=== PATIENT | female | born 1990 | race Caucasian/White ===

== ENCOUNTER 2022-06-07 10:00 | Emergency (ER) | payer OTHER, SELFPAY ==
[2022-06-07 10:24] VITALS: BP 143/92; PULSE 117; RESP 14; TEMP 36.4; O2SAT 97; BMI 29.2
[2022-06-07 10:44] LABS: MANUAL DIFF FLAG NO
[2022-06-07 10:47] LABS: Appearance Urine Clear; Color Urine Yellow; Glucose Urine UA >=1000 mg/dL (Negative); Leukocyte Esterase Urine Negative (Negative); Nitrite Urine Negative (Negative); PH 5.5 (5.0-9.0); Specific Gravity - Urine >= 1.030 (1.005-1.025); UMIC TRIGGER UACC YES; Urine Blood Negative (Negative); Urine Ketones >=160 mg/dL (Negative); Urine Protein Trace mg/dL (Neg-Trace)
[2022-06-07 10:50] LABS: Bacteria Urine Trace (None Seen); Hyaline Casts Urine 0-2 /LPF (0-2); RBC Urine 0-2 /HPF (0-2); WBC Urine 0-5 /HPF (0-5)
[2022-06-07 10:51] LABS: Basophils Percent Auto 0.3 % (0-2); Eosinophils Percent Auto 0.5 % (0-4); Hematocrit 44.7 % (37.0-47.0); Hemoglobin 14.9 g/dl (12.0-16.0); Imm Gran Abs Auto 0.03 X10*3/uL (0.00-0.03); Imm Gran Pct Auto 0.4 % (0.0-0.4); Lymphocytes Absolute Auto 1.3 X10*3/uL (1.2-4.9); Lymphocytes Percent Auto 17.3 % (20-40); Mean Corpuscular HGB Conc 33.3 g/dl (31.0-35.0); Mean Corpuscular Hemoglobin 27.3 pg (27.0-33.0); Mean Corpuscular Volume 81.9 fL (80.0-98.0); Mean Platelet Volume 8.8 fL (9.4-12.3); Monocytes Absolute Auto 0.5 X10*3/uL (0.1-1.2); Monocytes Percent Auto 6.1 % (2-11); Neutrophils Absolute Auto 5.8 x10*3/uL (2.0-8.3); Neutrophils Percent Auto 75.4 % (45-73); Platelet Count 429 X10*3/uL (160-400); Red Blood Count 5.46 X10*6/uL (4.20-5.50); Red Cell Distribution Width 13.7 % (11.0-16.0); UPreg QC Valid YES; Urine Pregnancy NEGATIVE (NEGATIVE); White Blood Count 7.7 X10*3/uL (4.8-10.8)
[2022-06-07 11:03] LABS: COVID-19 Test Negative (Negative); IDNOW Serial# 9DB6401D; IDNOW Serial# BCCEAD1C; Influenza A Negative (Negative); Influenza B2 Negative (Negative)
[2022-06-07 11:12] LABS: Anion Gap 19 (12-20); Blood Urea Nitrogen 12 mg/dL (9-16); Calcium 9.1 mg/dL (8.4-10.2); Carbon Dioxide 19 mmol/L (22-29); Chloride 98 mmol/L (96-108); Creatinine Clr Calc Pharmacy 102.3; Estimated Glomerular Filt Rate > 60; Glucose Random 420 mg/dL (60-115); Potassium 3.9 mmol/L (3.3-5.1); Sodium 132 mmol/L (135-145)
--- NOTE | 2022-06-07 13:47 | ED.GENADULT ---
HPI - General Adult General Chief complaint: General Medical Stated complaint: multiple complaints Time Seen by Provider: 06/07/22 13:41 Source: patient Mode of arrival: ambulatory Limitations: no limitations History of Present Illness HPI narrative: This is a 31 years old female presented to the emergency department complaining of nausea vomiting diarrhea generalized body aches ongoing for months. She has history of diabetes she is not taking any insulin at this time. Onset (ago): week(s) Radiation: non-radiation Severity: moderate Quality: burning Pain Consistency: constant Relieving factors: none Exacerbating factors: none Related Data Previous Rx's Medication Instructions Recorded metformin 500 mg tablet 500 mg PO BID #60 tabs 06/07/22 Allergies Allergy/AdvReac Type Severity Reaction Status Date / Time No Known Allergies Allergy Unverified 11/24/19 18:42 Review of Systems Constitutional: Constitutional: Reports no additional constitutional complaints Eyes: Eyes: Reports no additional eye complaints Gastrointestinal: Gastrointestinal: Reports diarrhea and Reports vomiting Neurologic: Reports system reviewed and no additional complaints, except as documented [facility] Past Medical History [facility] Narrative: History of diabetes Social History Social History Advance Directives: No Advance Directives Information Provided: No Physical Exam ED Vital Signs: Vital Signs - 24 hr 06/07/22 10:24 06/07/22 14:30 06/07/22 16:17 Temperature 97.6 F 98.7 F Pulse Rate 117 H 98 100 Respiratory Rate 14 16 16 Blood Pressure 143/92 H 138/90 H 146/93 H Pulse Oximetry 97 98 99 Oxygen Delivery Method Room Air Room Air Room Air BMI result Body Mass Index 29.2 Const General: cooperative Nutritional Appearance: average body habitus Orientation/consciousness: oriented to person and patient oriented x3 Limitations: no limitations HENMT Head: Yes normal to inspection General nose exam: Normal external nose present Face and sinus: Yes normal facial exam Neck Neck: Yes normal visual inspection and Yes full ROM Chest Chest palpation & inspection: normal inspection of the chest Resp Effort & Inspection: normal respiratory effort Auscultation: clear to auscultation bilaterally Cardio Jugular venous distension: no JVD Rate: regular rate Rhythm: regular rhythm GI Inspection: Yes normal to inspection Palpation (GI): Soft to palpation Percussion: Yes normal to percussion Auscultation: normal bowel sounds General: Yes no CVA tenderness Back/Spine/Pelvis Back: no CVA tenderness Skin General skin exam: no rashes or lesions noted, elasticity normal and turgor normal Lesions: no lesions Rashes: no rashes Neuro General: oriented to person and patient oriented x3 Cranial nerves: Yes CN's II-XII intact bilaterally Course Reevaluation(s) Reevaluation #1: feels better blood sugar down to 289 ,normal gap ok to d/c home,acetone normal Time: 16:29 Medications Administered Discontinued Medications Generic Name Dose Route Start Last Admin Trade Name Freq PRN Reason Stop Dose Admin Sodium Chloride 1,000 mls @ 999 mls/hr 06/07/22 13:45 06/07/22 14:07 Ns IVCONT 06/07/22 14:45 999 mls/hr .Q1H1M ROLO Administration Sodium Chloride 1,000 mls @ 999 mls/hr 06/07/22 13:45 06/07/22 14:08 Ns IVCONT 06/07/22 14:45 999 mls/hr .Q1H1M ROLO Administration Ondansetron HCl 4 mg 06/07/22 13:45 06/07/22 14:08 Ondansetron Hcl 4 Mg/2 Ml Vial IVPUSH 06/07/22 13:46 4 mg ONCE ONE Administration Medical Decision Making Medical Decision Making [facility] Narrative: Patient presented with nausea vomiting and diarrhea body aches history of diabetes glucose was elevated in triage with good the hydrate the patient check electrolytes/will check acetone/will check annual gap and reassessed Differential Diagnosis Differential Diagnoses: The differential diagnosis associated with the presentation includes DKA/dehydration/viral illness Admission/Observation Consideration of admission/observation: Escalation of care including admission/observation considered Lab Data [facility] Lab Attestation statement: I reviewed the patient's lab results. 06/07/22 10:38 06/07/22 10:38 Labs: Lab Results 06/07/22 06/07/22 06/07/22 Range/Units 10:38 10:38 10:38 WBC 7.7 (4.8-10.8) X10*3/uL RBC 5.46 (4.20-5.50) X10*6/uL Hgb 14.9 (12.0-16.0) g/dl Hct 44.7 (37.0-47.0) % MCV 81.9 (80.0-98.0) fL MCH 27.3 (27.0-33.0) pg MCHC 33.3 (31.0-35.0) g/dl RDW 13.7 (11.0-16.0) % Plt Count 429 H (160-400) X10*3/uL MPV 8.8 L (9.4-12.3) fL Immature Gran % (Auto) 0.4 (0.0-0.4) % Neut % (Auto) 75.4 H (45-73) % Lymph % (Auto) 17.3 L (20-40) % [place] % (Auto) 6.1 (2-11) % Eos % (Auto) 0.5 (0-4) % Baso % (Auto) 0.3 (0-2) % Lymph # (Auto) 1.3 (1.2-4.9) X10*3/uL [place] # (Auto) 0.5 (0.1-1.2) X10*3/uL Eos # (Auto) 0.0 (0.0-0.4) X10*3/uL Baso # (Auto) 0.0 (0.0-0.2) X10*3/uL Abs Immat Gran (auto) 0.03 (0.00-0.03) X10*3/uL Absolute Neuts (auto) 5.8 (2.0-8.3) x10*3/uL Absolute Nucleated RBC 0.000 (0.0-0.012) X10*3/uL Nucleated RBC % (auto) 0.0 (0.0-0.2) /100WBC Sodium 132 L (135-145) mmol/L Potassium 3.9 (3.3-5.1) mmol/L Chloride 98 (96-108) mmol/L Carbon Dioxide 19 L (22-29) mmol/L Anion Gap 19 (12-20) BUN 12 (9-16) mg/dL Creatinine 0.75 (0.5-1.4) mg/dL Estim Creat Clear Calc 102.3 Estimated GFR > 60 POC Glucose (60-115) mg/dL Random Glucose 420 H* (60-115) mg/dL Calcium 9.1 (8.4-10.2) mg/dL Urine Color Urine Appearance Urine pH (5.0-9.0) Ur Specific [place] (1.005-1.025) Urine Protein (Neg-Trace) mg/dL Urine Glucose (UA) (Negative) mg/dL Urine Ketones (Negative) mg/dL Urine Blood (Negative) Urine Nitrite (Negative) Ur Leukocyte Esterase (Negative) Urine RBC (0-2) /HPF Urine WBC (0-5) /HPF Ur Squamous Epith Cells (0-2) /HPF Urine Bacteria (None Seen) Hyaline Casts (0-2) /LPF Urine Test (NEGATIVE) Acetone, Qual (Negative) COVID-19 (ODILIA) (Negative) COVID-19 Clin Com Influenza Type A (LUC[place]LE) Negative (Negative) Influenza Type B (LUC[place]LE) Negative (Negative) Influenza A & B Note See Note 06/07/22 06/07/22 06/07/22 Range/Units 10:38 10:38 10:38 WBC (4.8-10.8) X10*3/uL RBC (4.20-5.50) X10*6/uL Hgb (12.0-16.0) g/dl Hct (37.0-47.0) % MCV (80.0-98.0) fL MCH (27.0-33.0) pg MCHC (31.0-35.0) g/dl RDW (11.0-16.0) % Plt Count (160-400) X10*3/uL MPV (9.4-12.3) fL Immature Gran % (Auto) (0.0-0.4) % Neut % (Auto) (45-73) % Lymph % (Auto) (20-40) % [place] % (Auto) (2-11) % Eos % (Auto) (0-4) % Baso % (Auto) (0-2) % Lymph # (Auto) (1.2-4.9) X10*3/uL [place] # (Auto) (0.1-1.2) X10*3/uL Eos # (Auto) (0.0-0.4) X10*3/uL Baso # (Auto) (0.0-0.2) X10*3/uL Abs Immat Gran (auto) (0.00-0.03) X10*3/uL Absolute Neuts (auto) (2.0-8.3) x10*3/uL Absolute Nucleated RBC (0.0-0.012) X10*3/uL Nucleated RBC % (auto) (0.0-0.2) /100WBC Sodium (135-145) mmol/L Potassium (3.3-5.1) mmol/L Chloride (96-108) mmol/L Carbon Dioxide (22-29) mmol/L Anion Gap (12-20) BUN (9-16) mg/dL Creatinine (0.5-1.4) mg/dL Estim Creat Clear Calc Estimated GFR POC Glucose (60-115) mg/dL Random Glucose (60-115) mg/dL Calcium (8.4-10.2) mg/dL Urine Color Yellow Urine Appearance Clear Urine pH 5.5 (5.0-9.0) Ur Specific [place] >= 1.030 H (1.005-1.025) Urine Protein Trace (Neg-Trace) mg/dL Urine Glucose (UA) >=1000 H (Negative) mg/dL Urine Ketones >=160 (Negative) mg/dL Urine Blood Negative (Negative) Urine Nitrite Negative (Negative) Ur Leukocyte Esterase Negative (Negative) Urine RBC 0-2 (0-2) /HPF Urine WBC 0-5 (0-5) /HPF Ur Squamous Epith Cells 6-10 (0-2) /HPF Urine Bacteria Trace (None Seen) Hyaline Casts 0-2 (0-2) /LPF Urine Test NEGATIVE (NEGATIVE) Acetone, Qual (Negative) COVID-19 (ODILIA) Negative (Negative) COVID-19 Clin Com See Note Influenza Type A ([place]UC[place]LE) (Negative) Influenza Type B ([place]UC[place]) (Negative) Influenza A & B Note 06/07/22 06/07/22 Range/Units 14:07 15:53 WBC (4.8-10.8) X10*3/uL RBC (4.20-5.50) X10*6/uL Hgb (12.0-16.0) g/dl Hct (37.0-47.0) % MCV (80.0-98.0) fL MCH (27.0-33.0) pg MCHC (31.0-35.0) g/dl RDW (11.0-16.0) % Plt Count (160-400) X10*3/uL MPV (9.4-12.3) fL Immature Gran % (Auto) (0.0-0.4) % Neut % (Auto) (45-73) % Lymph % (Auto) (20-40) % [place] % (Auto) (2-11) % Eos % (Auto) (0-4) % Baso % (Auto) (0-2) % Lymph # (Auto) (1.2-4.9) X10*3/uL [place] # (Auto) (0.1-1.2) X10*3/uL Eos # (Auto) (0.0-0.4) X10*3/uL Baso # (Auto) (0.0-0.2) X10*3/uL Abs Immat Gran (auto) (0.00-0.03) X10*3/uL Absolute Neuts (auto) (2.0-8.3) x10*3/uL Absolute Nucleated RBC (0.0-0.012) X10*3/uL Nucleated RBC % (auto) (0.0-0.2) /100WBC Sodium (135-145) mmol/L Potassium (3.3-5.1) mmol/L Chloride (96-108) mmol/L Carbon Dioxide (22-29) mmol/L Anion Gap (12-20) BUN (9-16) mg/dL Creatinine (0.5-1.4) mg/dL Estim Creat Clear Calc Estimated GFR POC Glucose 289 H (60-115) mg/dL Random Glucose (60-115) mg/dL Calcium (8.4-10.2) mg/dL Urine Color Urine Appearance Urine pH (5.0-9.0) Ur Specific [place] (1.005-1.025) Urine Protein (Neg-Trace) mg/dL Urine Glucose (UA) (Negative) mg/dL Urine Ketones (Negative) mg/dL Urine Blood (Negative) Urine Nitrite (Negative) Ur Leukocyte Esterase (Negative) Urine RBC (0-2) /HPF Urine WBC (0-5) /HPF Ur Squamous Epith Cells (0-2) /HPF Urine Bacteria (None Seen) Hyaline Casts (0-2) /LPF Urine Test (NEGATIVE) Acetone, Qual Negative (Negative) COVID-19 (ODILIA) (Negative) COVID-19 Clin Com Influenza Type A ([place]) (Negative) Influenza Type B ([place]UC[place]) (Negative) Influenza A & B Note Chronic Conditions Patient?s care impacted by: Diabetes Discharge Plan Discharge Clinical Impression: Acute dehydration, Hyperglycemia Patient Disposition: Home, Self-Care Instructions: Dehydration (ED), Diabetic Hyperglycemia (ED) Additional Instructions: 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
[2022-06-07] MEDS: 0.9 % Sodium Chloride 1,000 ML 999 ML IVCONT ×2 (14:07→14:08)
[2022-06-07] MEDS: ondansetron HCL 4 MG/2 ML VIAL IVPUSH (14:08)
[2022-06-07 14:21] LABS: Acetone, serum QL Negative (Negative)
[2022-06-07 14:30] VITALS: BP 138/90; PULSE 98; RESP 16; O2SAT 98
[2022-06-07 16:17] VITALS: BP 146/93; PULSE 100; RESP 16; TEMP 37.1; O2SAT 99
[2022-06-07 16:25] LABS: Glucose, Whole Blood 289 mg/dL (60-115)
[2022-06-07] MEDS: Loperamide HCl 2 MG CAPSULE PO (17:16)
== END 2022-06-07 17:42 | disposition home or self-care (01) ==
PROVIDERS: Emergency Provider Emergency Medicine
DX: R11.2 Nausea with vomiting, unspecified (principal); E86.0 Dehydration; E11.65 Type 2 diabetes mellitus with hyperglycemia; Z20.822 Contact with and (suspected) exposure to COVID-19
CPT/HCPCS: 36415; 80048; 81001; 81025; 82009; 82947; 85025; 87502; 87635; 96361; 96374; 99284; J2405

== ENCOUNTER 2022-08-02 13:23 | Emergency (ER) | payer OTHER, SELFPAY ==
[2022-08-02 13:54] VITALS: BP 138/79; PULSE 99; RESP 18; TEMP 36.8; O2SAT 99; BMI 29.3
--- NOTE | 2022-08-02 13:54 | ED.GENADULT ---
HPI - General Adult General Chief complaint: ETOH/Substance Use Stated complaint: detox Time Seen by Provider: 08/02/22 16:32 Source: patient, RN notes reviewed and old records reviewed Mode of arrival: ambulatory Limitations: no limitations History of Present Illness HPI narrative: 31-year-old female past medical history significant for diabetes, polysubstance abuse presents for evaluation of ?I need help? Patient reports she is trying to ?get clean for her kid. ? Patient states that she was sober for 3 years but recently relapsed with PCP, pills and marijuana She reports that she has been smoking PCP at least week. She also endorses using alcohol Patient reports that she has not been taking her metformin which she is prescribed for her diabetes She went to her PCP today who unable to refill medication but she has not yet have it yet and the patient referred here for detox Related Data Home Medications Medication Instructions Recorded Confirmed atomoxetine 40 mg capsule 40 mg PO QAM 08/02/22 08/02/22 gabapentin 100 mg capsule 100 mg PO BID PRN Pain 08/02/22 08/02/22 metformin 500 mg tablet 500 mg PO BID 08/02/22 08/02/22 oxcarbazepine 300 mg tablet 300 mg PO QAM 08/02/22 08/02/22 oxcarbazepine 300 mg tablet 600 mg PO BEDTIME 08/02/22 08/02/22 sertraline 100 mg tablet 100 mg PO DAILY 08/02/22 08/02/22 Allergies Allergy/AdvReac Type Severity Reaction Status Date / Time No Known Allergies Allergy Unverified 11/24/19 18:42 Review of Systems Constitutional: Constitutional: Denies chills, Reports difficulty sleeping, Denies fever(s) and Denies headache(s) ENT: Denies headache(s) Cardiovascular: Cardiovascular: Denies chest pain, Denies rapid heart rate and Denies dyspnea Respiratory: Respiratory: Denies cough and Denies dyspnea Gastrointestinal: Gastrointestinal: Denies abdominal pain, Denies nausea and Denies vomiting Genitourinary: Genitourinary: Denies dysuria Musculoskeletal: Musculoskeletal: Denies back pain Integumentary/Breasts: Skin/Breast: Denies rash Neurologic: Denies headache(s) [facility] Social History Social History Use of substances other than those prescribed or required for medical reasons: Yes Substance Use Type: Other Substance Use Type Other:: pcp Substance Use Frequency: Chronic Longstanding Substance Use Frequency Other:: daily Advance Directives: No Advance Directives Information Provided: No Physical Exam ED Vital Signs: Vital Signs - 24 hr 08/02/22 13:54 08/02/22 18:49 Temperature 98.2 F 97.4 F Pulse Rate 99 75 Respiratory Rate 18 16 Blood Pressure 138/79 135/73 Pulse Oximetry 99 97 Oxygen Delivery Method Room Air Room Air BMI result Body Mass Index 29.3 Const General: healthy appearing, comfortable, no acute distress, alert and awake Nutritional Appearance: well nourished Orientation/consciousness: patient oriented x3 HENMT Head: Yes normocephalic and Yes atraumatic Eyes Eyelids: Yes eyelids normal Conjunctivae: conjunctivae normal Sclerae: sclerae normal Corneas: corneas normal Pupils: Equal, round and reactive pupils present EOM: EOMs intact bilaterally Neck Neck: Yes full ROM Resp Effort & Inspection: normal respiratory effort, no audible wheezes and not labored Cardio Rate: regular rate Rhythm: regular rhythm GI Inspection: No distended Palpation (GI): Soft to palpation Auscultation: normoactive bowel sounds Skin General skin exam: no rashes or lesions noted and elasticity normal Neuro General: patient oriented x3 Cranial nerves: Yes Equal, round and reactive pupils present and Yes Bilaterally intact EOM present Cognition (Neuro): normal cognition Extrem Other: Moving all extremities well without any obvious deformities Course Course Course Narrative: RME performed by Hannah Flores PA-C. Patient is a 31 year old assigned female at presenting to the emergency department requesting help from PCP abuse. Labs ordered. Patient placed back in the waiting room pending room availability and results. Reevaluation(s) Reevaluation #1: Patient's sugar came down to 346 after IV fluids and IV insulin. Will give her another dose of subcutaneous insulin any given her a dose her metformin she has not had. The patient is now medically cleared for care team evaluation. Time: 19:29 Reevaluation #2: I was asked to go to the patient again as she is now requesting discharge. I explained to the patient that she was just recently medically cleared on the care team will be able to evaluate her shortly. The patient is not suicidal and has not expressed any suicidal ideation. She still denies any suicidal ideation when I ask her directly. She will be discharged per her request Time: 19:54 Medications Administered Discontinued Medications Generic Name Dose Route Start Last Admin Trade Name Milady PRN Reason Stop Dose Admin Sodium Chloride 1,000 mls @ 999 mls/hr 08/02/22 16:45 08/02/22 19:06 Ns IV 08/02/22 18:45 Infused .Q1H1M ROLO Infusion Insulin Human Lispro 5 unit 08/02/22 19:23 08/02/22 19:37 Insulin Lispro 100 Unit/Ml 3 Ml Vial SUBCUT 08/02/22 19:24 5 unit ONCE ONE Administration Insulin Human Regular 5 unit 08/02/22 16:45 08/02/22 17:28 Insulin Regular, Human 100 Unit/Ml 3 Ml Vial IVPUSH 08/02/22 16:46 5 unit ONCE ONE Administration Metformin HCl 1,000 mg 08/02/22 19:23 08/02/22 19:37 Metformin Hcl 1,000 Mg Tablet PO 08/02/22 19:24 1,000 mg ONCE ONE Administration Medical Decision Making Medical Decision Making MDM Narrative: 31-year-old female presents for evaluation of detox. She reports recently relapsing with PCP, alcohol and marijuana. Patient was incidentally found to have a blood sugar of 461. There is no evidence of DKA. We will try to get her sugar under control with IV fluids and a small dose of insulin before she is medically cleared for care team evaluation. Differential Diagnosis Polysubstance abuse Alcohol withdrawal PCP abuse Marijuana use Diabetes Hyperglycemia Lab Data 08/02/22 14:00 08/02/22 14:01 Labs: Lab Results 08/02/22 08/02/22 08/02/22 Range/Units 14:00 14:01 15:38 WBC 9.9 (4.8-10.8) X10*3/uL RBC 4.76 (4.20-5.50) X10*6/uL Hgb 12.7 (12.0-16.0) g/dl Hct 39.6 (37.0-47.0) % MCV 83.2 (80.0-98.0) fL MCH 26.7 L (27.0-33.0) pg MCHC 32.1 (31.0-35.0) g/dl RDW 13.2 (11.0-16.0) % Plt Count 435 H (160-400) X10*3/uL MPV 9.0 L (9.4-12.3) fL Immature Gran % (Auto) 0.3 (0.0-0.4) % Neut % (Auto) 65.9 (45-73) % Lymph % (Auto) 28.8 (20-40) % [place] % (Auto) 3.6 (2-11) % Eos % (Auto) 0.8 (0-4) % Baso % (Auto) 0.6 (0-2) % Lymph # (Auto) 2.9 (1.2-4.9) X10*3/uL [place] # (Auto) 0.4 (0.1-1.2) X10*3/uL Eos # (Auto) 0.1 (0.0-0.4) X10*3/uL Baso # (Auto) 0.1 (0.0-0.2) X10*3/uL Abs Immat Gran (auto) 0.03 (0.00-0.03) X10*3/uL Absolute Neuts (auto) 6.6 (2.0-8.3) x10*3/uL Absolute Nucleated RBC 0.000 (0.0-0.012) X10*3/uL Nucleated RBC % (auto) 0.0 (0.0-0.2) /100WBC Sodium 136 (135-145) mmol/L Potassium 4.1 (3.3-5.1) mmol/L Chloride 105 (96-108) mmol/L Carbon Dioxide 22 (22-29) mmol/L Anion Gap 13 (12-20) BUN 8 L (9-16) mg/dL Creatinine 0.79 (0.5-1.4) mg/dL Estim Creat Clear Calc 97.1 Estimated GFR > 60 POC Glucose (60-115) mg/dL Random Glucose 461 H* (60-115) mg/dL Calcium 9.3 (8.4-10.2) mg/dL Magnesium 1.9 (1.6-2.6) mg/dL Total Bilirubin 0.6 (0.0-1.0) mg/dL AST 10 (5-31) U/L ALT 14 (0-31) U/L Alkaline Phosphatase 101 (39-117) U/L Total Protein 7.1 (6.5-8.0) g/dL Albumin 4.1 (3.5-5.0) g/dL Beta HCG, Quant < 2 mIU/mL Urine Color Yellow Urine Appearance Clear Urine pH 5.5 (5.0-9.0) Ur Specific [place] >= 1.030 H (1.005-1.025) Urine Protein Negative (Neg-Trace) mg/dL Urine Glucose (UA) >=1000 H (Negative) mg/dL Urine Ketones 15 (Negative) mg/dL Urine Blood Negative (Negative) Urine Nitrite Negative (Negative) Ur Leukocyte Esterase Negative (Negative) Urine RBC 0-2 (0-2) /HPF Urine WBC 0-5 (0-5) /HPF Ur Squamous Epith Cells 0-2 (0-2) /HPF Urine Bacteria None Seen (None Seen) Hyaline Casts 3-5 (0-2) /LPF Urine Opiates Screen (Not Detect) Urine Fentanyl Screen (Not Detect) Ur Barbiturates Screen (Not Detect) Ur Phencyclidine Scrn (Not Detect) Ur Amphetamines Screen (Not Detect) U Benzodiazepines Scrn (Not Detect) Urine Cocaine Screen (Not Detect) U Marijuana (THC) Screen (Not Detect) COVID-19 (ODILIA) (Negative) COVID-19 Clin Com 08/02/22 08/02/22 08/02/22 Range/Units 15:38 16:34 18:19 WBC (4.8-10.8) X10*3/uL RBC (4.20-5.50) X10*6/uL Hgb (12.0-16.0) g/dl Hct (37.0-47.0) % MCV (80.0-98.0) fL MCH (27.0-33.0) pg MCHC (31.0-35.0) g/dl RDW (11.0-16.0) % Plt Count (160-400) X10*3/uL MPV (9.4-12.3) fL Immature Gran % (Auto) (0.0-0.4) % Neut % (Auto) (45-73) % Lymph % (Auto) (20-40) % [place] % (Auto) (2-11) % Eos % (Auto) (0-4) % Baso % (Auto) (0-2) % Lymph # (Auto) (1.2-4.9) X10*3/uL [place] # (Auto) (0.1-1.2) X10*3/uL Eos # (Auto) (0.0-0.4) X10*3/uL Baso # (Auto) (0.0-0.2) X10*3/uL Abs Immat Gran (auto) (0.00-0.03) X10*3/uL Absolute Neuts (auto) (2.0-8.3) x10*3/uL Absolute Nucleated RBC (0.0-0.012) X10*3/uL Nucleated RBC % (auto) (0.0-0.2) /100WBC Sodium (135-145) mmol/L Potassium (3.3-5.1) mmol/L Chloride (96-108) mmol/L Carbon Dioxide (22-29) mmol/L Anion Gap (12-20) BUN (9-16) mg/dL Creatinine (0.5-1.4) mg/dL Estim Creat Clear Calc Estimated GFR POC Glucose 360 H* (60-115) mg/dL Random Glucose (60-115) mg/dL Calcium (8.4-10.2) mg/dL Magnesium (1.6-2.6) mg/dL Total Bilirubin (0.0-1.0) mg/dL AST (5-31) U/L ALT (0-31) U/L Alkaline Phosphatase (39-117) U/L Total Protein (6.5-8.0) g/dL Albumin (3.5-5.0) g/dL Beta HCG, Quant mIU/mL Urine Color Urine Appearance Urine pH (5.0-9.0) Ur Specific [place] (1.005-1.025) Urine Protein (Neg-Trace) mg/dL Urine Glucose (UA) (Negative) mg/dL Urine Ketones (Negative) mg/dL Urine Blood (Negative) Urine Nitrite (Negative) Ur Leukocyte Esterase (Negative) Urine RBC (0-2) /HPF Urine WBC (0-5) /HPF Ur Squamous Epith Cells (0-2) /HPF Urine Bacteria (None Seen) Hyaline Casts (0-2) /LPF Urine Opiates Screen Not Detected (Not Detect) Urine Fentanyl Screen Not Detected (Not Detect) Ur Barbiturates Screen Not Detected (Not Detect) Ur Phencyclidine Scrn POSITIVE H (Not Detect) Ur Amphetamines Screen Not Detected (Not Detect) U Benzodiazepines Scrn Not Detected (Not Detect) Urine Cocaine Screen Not Detected (Not Detect) U Marijuana (THC) Screen POSITIVE H (Not Detect) COVID-19 (ODILIA) Negative (Negative) COVID-19 Clin Com See Note 08/02/22 Range/Units 19:17 WBC (4.8-10.8) X10*3/uL RBC (4.20-5.50) X10*6/uL Hgb (12.0-16.0) g/dl Hct (37.0-47.0) % MCV (80.0-98.0) fL MCH (27.0-33.0) pg MCHC (31.0-35.0) g/dl RDW (11.0-16.0) % Plt Count (160-400) X10*3/uL MPV (9.4-12.3) fL Immature Gran % (Auto) (0.0-0.4) % Neut % (Auto) (45-73) % Lymph % (Auto) (20-40) % [place] % (Auto) (2-11) % Eos % (Auto) (0-4) % Baso % (Auto) (0-2) % Lymph # (Auto) (1.2-4.9) X10*3/uL [place] # (Auto) (0.1-1.2) X10*3/uL Eos # (Auto) (0.0-0.4) X10*3/uL Baso # (Auto) (0.0-0.2) X10*3/uL Abs Immat Gran (auto) (0.00-0.03) X10*3/uL Absolute Neuts (auto) (2.0-8.3) x10*3/uL Absolute Nucleated RBC (0.0-0.012) X10*3/uL Nucleated RBC % (auto) (0.0-0.2) /100WBC Sodium (135-145) mmol/L Potassium (3.3-5.1) mmol/L Chloride (96-108) mmol/L Carbon Dioxide (22-29) mmol/L Anion Gap (12-20) BUN (9-16) mg/dL Creatinine (0.5-1.4) mg/dL Estim Creat Clear Calc Estimated GFR POC Glucose 346 H (60-115) mg/dL Random Glucose (60-115) mg/dL Calcium (8.4-10.2) mg/dL Magnesium (1.6-2.6) mg/dL Total Bilirubin (0.0-1.0) mg/dL AST (5-31) U/L ALT (0-31) U/L Alkaline Phosphatase (39-117) U/L Total Protein (6.5-8.0) g/dL Albumin (3.5-5.0) g/dL Beta HCG, Quant mIU/mL Urine Color Urine Appearance Urine pH (5.0-9.0) Ur Specific [place] (1.005-1.025) Urine Protein (Neg-Trace) mg/dL Urine Glucose (UA) (Negative) mg/dL Urine Ketones (Negative) mg/dL Urine Blood (Negative) Urine Nitrite (Negative) Ur Leukocyte Esterase (Negative) Urine RBC (0-2) /HPF Urine WBC (0-5) /HPF Ur Squamous Epith Cells (0-2) /HPF Urine Bacteria (None Seen) Hyaline Casts (0-2) /LPF Urine Opiates Screen (Not Detect) Urine Fentanyl Screen (Not Detect) Ur Barbiturates Screen (Not Detect) Ur Phencyclidine Scrn (Not Detect) Ur Amphetamines Screen (Not Detect) U Benzodiazepines Scrn (Not Detect) Urine Cocaine Screen (Not Detect) U Marijuana (THC) Screen (Not Detect) COVID-19 (ODILIA) (Negative) COVID-19 Clin Com Discharge Plan Discharge Clinical Impression: Drug abuse, phencyclidine, Acute hyperglycemia Patient Disposition: Home, Self-Care Instructions: Polysubstance Abuse (ED) Additional Instructions: Your blood sugar was high today, make sure you are taking your prescribed medications. Follow-up your primary doctor for this You are leaving prior to speaking with care team You may return if you changed your mind and wish to speak with the care team Prescriptions: No Action metformin 500 mg tablet 500 mg PO BID oxcarbazepine 300 mg tablet 300 mg PO QAM gabapentin 100 mg capsule 100 mg PO BID PRN (Reason: Pain) atomoxetine 40 mg capsule 40 mg PO QAM oxcarbazepine 300 mg tablet 600 mg PO BEDTIME sertraline 100 mg tablet 100 mg PO DAILY
[2022-08-02 14:05] LABS: MANUAL DIFF FLAG NO
[2022-08-02 14:18] LABS: Basophils Absolute Auto 0.1 X10*3/uL (0.0-0.2); Basophils Percent Auto 0.6 % (0-2); Eosinophils Absolute Auto 0.1 X10*3/uL (0.0-0.4); Eosinophils Percent Auto 0.8 % (0-4); Hematocrit 39.6 % (37.0-47.0); Hemoglobin 12.7 g/dl (12.0-16.0); Imm Gran Abs Auto 0.03 X10*3/uL (0.00-0.03); Imm Gran Pct Auto 0.3 % (0.0-0.4); Lymphocytes Absolute Auto 2.9 X10*3/uL (1.2-4.9); Lymphocytes Percent Auto 28.8 % (20-40); Mean Corpuscular HGB Conc 32.1 g/dl (31.0-35.0); Mean Corpuscular Hemoglobin 26.7 pg (27.0-33.0); Mean Corpuscular Volume 83.2 fL (80.0-98.0); Monocytes Absolute Auto 0.4 X10*3/uL (0.1-1.2); Monocytes Percent Auto 3.6 % (2-11); Neutrophils Absolute Auto 6.6 x10*3/uL (2.0-8.3); Neutrophils Percent Auto 65.9 % (45-73); Platelet Count 435 X10*3/uL (160-400); Red Blood Count 4.76 X10*6/uL (4.20-5.50); Red Cell Distribution Width 13.2 % (11.0-16.0); White Blood Count 9.9 X10*3/uL (4.8-10.8)
[2022-08-02 14:31] LABS: Alanine Aminotransferase 14 U/L (0-31); Albumin Level 4.1 g/dL (3.5-5.0); Alkaline Phosphatase 101 U/L (39-117); Anion Gap 13 (12-20); Aspartate Amino Transferase 10 U/L (5-31); Bilirubin Total 0.6 mg/dL (0.0-1.0); Blood Urea Nitrogen 8 mg/dL (9-16); Calcium 9.3 mg/dL (8.4-10.2); Carbon Dioxide 22 mmol/L (22-29); Chloride 105 mmol/L (96-108); Creatinine Clr Calc Pharmacy 97.1; Estimated Glomerular Filt Rate > 60; Glucose Random 461 mg/dL (60-115); HCG Quantitative < 2 mIU/mL; Magnesium 1.9 mg/dL (1.6-2.6); Potassium 4.1 mmol/L (3.3-5.1); Sodium 136 mmol/L (135-145); Total Protein 7.1 g/dL (6.5-8.0)
[2022-08-02 15:44] LABS: Appearance Urine Clear; Color Urine Yellow; Glucose Urine UA >=1000 mg/dL (Negative); Leukocyte Esterase Urine Negative (Negative); Nitrite Urine Negative (Negative); PH 5.5 (5.0-9.0); Specific Gravity - Urine >= 1.030 (1.005-1.025); UMIC TRIGGER UACC YES; Urine Blood Negative (Negative); Urine Ketones 15 mg/dL (Negative); Urine Protein Negative (Neg-Trace)
[2022-08-02 15:59] LABS: Amphetamine Screen Urine Not Detected (Not Detect); Barbiturates, Urine Not Detected (Not Detect); Benzodiazepines Screen Urine Not Detected (Not Detect); Cannabinoid Screen Urine POSITIVE (Not Detect); Cocaine Screen Urine Not Detected (Not Detect); Fentanyl, urine Not Detected (Not Detect); Opiate Screen Urine Not Detected (Not Detect); Phencyclidine Screen Urine POSITIVE (Not Detect)
[2022-08-02 16:04] LABS: Bacteria Urine None Seen (None Seen); RBC Urine 0-2 /HPF (0-2); Squamous Epithelial Cell Urine 0-2 /HPF (0-2); WBC Urine 0-5 /HPF (0-5)
[2022-08-02 17:05] LABS: COVID-19 Test Negative (Negative); IDNOW Serial# BCCEAD1C
[2022-08-02] MEDS: Insulin Regular, Human 100 UNIT/ML 3 ML VIAL IVPUSH (17:28)
[2022-08-02] MEDS: 0.9 % Sodium Chloride 1,000 ML 999 ML IV ×2 (17:29→18:13)
--- NOTE | 2022-08-02 17:53 | MHC.RECOVSUP ---
? Reason for consult Recovery Support o Current location: [facility] o Identified substance use concern: pcp - Seeking ATS (detox) - Support ? Intervention: o Community resources provided o Harm reduction discussion ? Plan: o Follow up tomorrow o Patient awaiting crisis evaluation o Patient to follow up with HF after discharge ? Additional information: Patient seeking ATS for PCP.. At the moment there are no beds at any ATS.. I was able to talk about recovery and Harm reduction.. And resources was given..
[2022-08-02 18:24] LABS: Glucose, Whole Blood 360 mg/dL (60-115)
[2022-08-02 18:49] VITALS: BP 135/73; PULSE 75; RESP 16; TEMP 36.3; O2SAT 97
[2022-08-02 19:20] LABS: Glucose, Whole Blood 346 mg/dL (60-115)
[2022-08-02] MEDS: Insulin Lispro 100 UNIT/ML 3 ML VIAL SUBCUT (19:37)
[2022-08-02] MEDS: metFORMIN HCl 1,000 MG TABLET 1000 MG PO (19:37)
== END 2022-08-02 20:00 | disposition home or self-care (01) ==
PROVIDERS: Physician Assistant Medical; Emergency Provider Emergency Medicine
DX: F16.10 Hallucinogen abuse, uncomplicated (principal); Z20.822 Contact with and (suspected) exposure to COVID-19; F19.10 Other psychoactive substance abuse, uncomplicated; E11.65 Type 2 diabetes mellitus with hyperglycemia; Z79.84 Long term (current) use of oral hypoglycemic drugs; Z79.899 Other long term (current) drug therapy
CPT/HCPCS: 36415; 80053; 80307; 81001; 82947; 83735; 84702; 85025; 87635; 96361; 96374; 99284; 99285

== ENCOUNTER 2022-09-03 06:59 | Emergency (ER) | payer OTHER, SELFPAY ==
[2022-09-03 07:04] VITALS: BP 151/95; PULSE 82; RESP 16; TEMP 36.6; O2SAT 98; BMI 27.4
--- NOTE | 2022-09-03 07:26 | ED.SKABFB ---
HPI - Skin/Abscess/Foreign Bdy General Chief complaint: Skin/Abscess/Foreign Body Stated complaint: infected? pain right leg Time Seen by Provider: 09/03/22 07:00 Source: patient Mode of arrival: ambulatory Limitations: no limitations History of Present Illness HPI narrative: 31-year-old female with diabetes was supposed to be on metformin let insulin who was noncompliant presents with pain, swelling and redness to the right groin area. Symptoms started 1 month ago. The symptoms are intermittent. They are now more severe. She reports having had some purulent and bloody discharge from time to time. She denies any fevers or chills. There is no clear relieving or exacerbating features. Patient's reports the symptoms as moderate in nature. Related Data Home Medications Medication Instructions Recorded Confirmed atomoxetine 40 mg capsule 40 mg PO QAM 08/02/22 08/02/22 gabapentin 100 mg capsule 100 mg PO BID PRN Pain 08/02/22 08/02/22 metformin 500 mg tablet 500 mg PO BID 08/02/22 08/02/22 oxcarbazepine 300 mg tablet 300 mg PO QAM 08/02/22 08/02/22 oxcarbazepine 300 mg tablet 600 mg PO BEDTIME 08/02/22 08/02/22 sertraline 100 mg tablet 100 mg PO DAILY 08/02/22 08/02/22 Allergies Allergy/AdvReac Type Severity Reaction Status Date / Time No Known Allergies Allergy Unverified 11/24/19 18:42 Review of Systems Review of Systems: CONSTITUTIONAL: Denies weight loss, fever and chills. HEENT: Denies changes in vision and hearing. RESPIRATORY: Denies SOB and cough. CV: Denies palpitations no CP. GI: Denies abdominal pain, nausea, vomiting and diarrhea. : Denies dysuria and urinary frequency. MSK: Denies myalgia and joint pain. SKIN: Denies rash and pruritus. NEUROLOGICAL: Denies headache and syncope. PSYCHIATRIC: Denies recent changes in mood. Denies anxiety and depression. All other ROS are negative unless in HPI PMFSH Social History Social History Substance Use Type: Other Advance Directives: No Advance Directives Information Provided: No Physical Exam Vital Signs: Vital Signs: Last Vital Signs Temp 97.8 F 09/03/22 07:04 Pulse 82 09/03/22 07:04 Resp 16 09/03/22 07:04 BP 151/95 H 09/03/22 07:04 Pulse Ox 98 09/03/22 07:04 O2 Del Method Room Air 09/03/22 07:04 BMI result Body Mass Index 27.4 GEN: Well developed, no acute distress, alert, oriented HEENT: Normocephalic, atraumatic, normal external ears, nose appears normal Eyes: Normal to appearance Neck: Supple, no lymphadenopathy Respiratory: Talks in complete sentences, no respiratory distress Extremities: No clubbing cyanosis or edema Neurologic: No focal neurologic deficits, cranial nerves 2-12 intact, gait normal Skin: No rash : 2.5 cm long by 1 cm wide abscess, opened, no active drainage, tender to palpation, mild erythematous skin changes Technical Programs Manager present, [place] : Female genitals images: 1. abscess Course Course Course Narrative: I spent significant amount of time with the patient. We discussed her options which included incision and drainage which is the more definitive treatment plus oral antibiotics close follow-up. We also discussed the alternative of its baths, oral antibiotics, anti-inflammatory pain medications and follow-up with OBGYN. She opted for the latter treatment. She is aware that she may need to come back sooner of than later to have and a definitive procedure. She is a diabetic who is noncompliant with her medications. We discussed at length the importance of tight blood sugar control with the recommended goal of 150 on a regular basis. She is aware that hyperglycemic. Skin cause significant risk of worsening infections that may require surgery, hospitalization intravenous antibiotics. Family member was present during this conversation. Medical Decision Making Medical Decision Making MDM Narrative: 31-year-old female with a history of hidradenitis presents with possible abscess the coronary. Her examination is consistent with that. She reports constant drainage. There is no active drainage on my evaluation. I have recommended incision and drainage for definitive treatment. However, patient does not believe she can sit still for the exam and is concerned about the pain and discomfort. She would opt for a noninvasive treatment. She will start oral antibiotics. In addition, patient is noncompliant with her diabetes medication. I stressed the importance of tight blood sugar control especially when infection is present. She is aware that failure to control her blood sugars at this time could cause significant risk for sepsis, severe infection, need for incision and drainage or potentially an operative approach. Differential Diagnosis Differential Diagnoses: The differential diagnosis associated with the presentation includes (Cellulitis, abscess, cyst) Independent Historian Clinical information obtained from an independent historian. History obtained from or confirmed by: Other (Family member) Prescription Management I considered prescription management with: Pain Medication and Antibiotic Discharge Plan Discharge Clinical Impression: Abscess of skin or subcutaneous tissue, Hyperglycemia due to type 2 diabetes mellitus, Noncompliance with medication regimen Patient Disposition: Home, Self-Care Instructions: Abscess (ED), Diabetic Hyperglycemia (ED), Hidradenitis Suppurativa (ED) Additional Instructions: You were seen today for an abscess in the pelvic area. I recommended incision and drainage. I opted to use medications in follow-up on an as-needed basis. Were also noted to have a significant elevated blood sugar level. It is extremely important that you maintain tight control of her blood sugar with a tight with a target of approximately 150. Please make sure you restart her diabetic medications. Should her symptoms worsen in any way, please return immediately to the hospital. Prescriptions: No Action metformin 500 mg tablet 500 mg PO BID oxcarbazepine 300 mg tablet 300 mg PO QAM gabapentin 100 mg capsule 100 mg PO BID PRN (Reason: Pain) atomoxetine 40 mg capsule 40 mg PO QAM oxcarbazepine 300 mg tablet 600 mg PO BEDTIME sertraline 100 mg tablet 100 mg PO DAILY Referrals: Physician,None [Primary Care Provider] - (Primary care provider and 2 days)
[2022-09-03 07:42] LABS: Glucose, Whole Blood 347 mg/dL (60-115)
[2022-09-03] MEDS: Sulfamethox/Trimeth 800/160 TABLET 1 TAB PO (07:50)
== END 2022-09-03 07:52 | disposition home or self-care (01) ==
PROVIDERS: Emergency Provider Emergency Medicine
DX: L02.91 Cutaneous abscess, unspecified (principal); E11.65 Type 2 diabetes mellitus with hyperglycemia; Z79.899 Other long term (current) drug therapy; Z79.84 Long term (current) use of oral hypoglycemic drugs; Z91.148 Patient's other noncompliance with medication regimen for other reason
CPT/HCPCS: 82947; 99282; 99283

== ENCOUNTER 2023-06-23 08:58 | Outpatient (REF) | payer OTHER, SELFPAY ==
--- NOTE | ~2023-06-23 | XR_ITS ---
EXAMINATION: XR LUMBOSACRAL SPINE CLINICAL INFORMATION: Low back pain. COMPARISON: 08/02/2018. TECHNIQUE: Three views of the lumbosacral spine. FINDINGS: Levoscoliosis of the lumbar spine. Degenerative changes with advanced asymmetric sclerosis and narrowing in the left sacroiliac joint progressed since 08/02/2018 exam. Facet arthritis in the lower lumbar spine. Mild multilevel lumbar spondylosis. XR/XR lumbar spine 2-3V IMPRESSION: 1. Degenerative changes with advanced asymmetric sclerosis and narrowing in the left sacroiliac joint progressed since 08/02/2018 exam. 2. Facet arthritis in the lower lumbar spine.
[2023-06-23 09:17] LABS: MANUAL DIFF FLAG NO
[2023-06-23 09:33] LABS: Basophils Absolute Auto 0.1 X10*3/uL (0.0-0.2); Basophils Percent Auto 0.9 % (0-2); Eosinophils Absolute Auto 0.2 X10*3/uL (0.0-0.4); Eosinophils Percent Auto 1.9 % (0-4); Hematocrit 41.6 % (37.0-47.0); Hemoglobin 13.5 g/dl (12.0-16.0); Imm Gran Abs Auto 0.02 X10*3/uL (0.00-0.03); Imm Gran Pct Auto 0.3 % (0.0-0.4); Lymphocytes Absolute Auto 2.4 X10*3/uL (1.2-4.9); Lymphocytes Percent Auto 30.3 % (20-40); Mean Corpuscular HGB Conc 32.5 g/dl (31.0-35.0); Mean Corpuscular Hemoglobin 26.9 pg (27.0-33.0); Mean Corpuscular Volume 82.9 fL (80.0-98.0); Mean Platelet Volume 9.1 fL (9.4-12.3); Monocytes Absolute Auto 0.4 X10*3/uL (0.1-1.2); Monocytes Percent Auto 4.9 % (2-11); Neutrophils Absolute Auto 4.8 x10*3/uL (2.0-8.3); Neutrophils Percent Auto 61.7 % (45-73); Platelet Count 462 X10*3/uL (160-400); Red Blood Count 5.02 X10*6/uL (4.20-5.50); Red Cell Distribution Width 13.2 % (11.0-16.0); White Blood Count 7.8 X10*3/uL (4.8-10.8)
[2023-06-23 09:41] LABS: Estimated Average Glucose 309 mg/dL; Hemoglobin A1c % 12.4 % (<6.0)
[2023-06-23 10:02] LABS: Alanine Aminotransferase 18 U/L (0-31); Albumin Level 4.5 g/dL (3.5-5.0); Alkaline Phosphatase 94 U/L (39-117); Anion Gap 15 (12-20); Aspartate Amino Transferase 13 U/L (5-31); Bilirubin Total 0.4 mg/dL (0.0-1.0); Blood Urea Nitrogen 12 mg/dL (9-16); C Reactive Protein 0.48 mg/dL (< or = 0.50); Calcium 9.7 mg/dL (8.4-10.2); Carbon Dioxide 26 mmol/L (22-29); Chloride 102 mmol/L (96-108); Estimated Glomerular Filt Rate > 60; Glucose Fasting 306 mg/dL (60-99); Potassium 4.8 mmol/L (3.3-5.1); Sodium 138 mmol/L (135-145); Total Protein 7.8 g/dL (6.5-8.0)
[2023-06-23 10:18] LABS: Erythrocyte Sedimentation Rate 11 MM/HR (0-20)
[2023-06-23 10:21] LABS: Free T4 (Free Thyroxine) 1.05 ng/dL (0.71-1.85); Thyroid Stimulating Hormone 0.81 uIU/mL (0.32-4.0)
== END 2023-06-23 08:59 | disposition home or self-care (01) ==
LOC: HO.LAB 08:58
PROVIDERS: PCP Internal Medicine; Visit Provider Internal Medicine
DX: M54.50 Low back pain, unspecified (principal); E11.9 Type 2 diabetes mellitus without complications; R53.83 Other fatigue; Z79.4 Long term (current) use of insulin
CPT/HCPCS: 36415; 72100; 80053; 83036; 84439; 84443; 85025; 85652; 86140

== ENCOUNTER 2024-06-17 07:41 | Outpatient (REF) | payer OTHER, SELFPAY ==
[2024-06-17 07:58] LABS: MANUAL DIFF FLAG NO
[2024-06-17 08:44] LABS: Basophils Absolute Auto 0.1 X10*3/uL (0.0-0.2); Basophils Percent Auto 0.9 % (0-2); Eosinophils Absolute Auto 0.3 X10*3/uL (0.0-0.4); Eosinophils Percent Auto 2.9 % (0-4); Hematocrit 40.3 % (37.0-47.0); Hemoglobin 13.2 g/dl (12.0-16.0); Imm Gran Abs Auto 0.07 X10*3/uL (0.00-0.03); Imm Gran Pct Auto 0.7 % (0.0-0.4); Lymphocytes Absolute Auto 2.9 X10*3/uL (1.2-4.9); Lymphocytes Percent Auto 28.6 % (20-40); Mean Corpuscular HGB Conc 32.8 g/dl (31.0-35.0); Mean Corpuscular Hemoglobin 27.7 pg (27.0-33.0); Mean Corpuscular Volume 84.5 fL (80.0-98.0); Mean Platelet Volume 9.3 fL (9.4-12.3); Monocytes Absolute Auto 0.5 X10*3/uL (0.1-1.2); Monocytes Percent Auto 5.2 % (2-11); Neutrophils Absolute Auto 6.2 x10*3/uL (2.0-8.3); Neutrophils Percent Auto 61.7 % (45-73); Platelet Count 489 X10*3/uL (160-400); Red Blood Count 4.77 X10*6/uL (4.20-5.50); Red Cell Distribution Width 12.6 % (11.0-16.0)
[2024-06-17 08:56] LABS: Estimated Average Glucose 295 mg/dL; Hemoglobin A1C 379.0502 umol/L; Hemoglobin A1c % 11.9 % (<6.0); Total Hemoglobin (HGBA1C) 3553.4044 umol/L
[2024-06-17 09:24] LABS: Alanine Aminotransferase 22 U/L (0-31); Albumin Level 4.3 g/dL (3.5-5.0); Alkaline Phosphatase 91 U/L (39-117); Anion Gap 13 (12-20); Aspartate Amino Transferase 15 U/L (5-31); Bilirubin Total 0.5 mg/dL (0.0-1.0); Blood Urea Nitrogen 14 mg/dL (9-16); Calcium 9.4 mg/dL (8.4-10.2); Carbon Dioxide 23 mmol/L (22-29); Chloride 106 mmol/L (96-108); Cholesterol 230 mg/dL (<200); Estimated Glomerular Filt Rate > 60; Glucose Fasting 247 mg/dL (60-99); HDL Cholesterol 68 mg/dL (>40); LDL Cholesterol Calculated 129 mg/dL (<100); Potassium 4.5 mmol/L (3.3-5.1); Sodium 137 mmol/L (135-145); Total Protein 7.4 g/dL (6.5-8.0); Triglycerides 165 mg/dL (<150)
== END 2024-06-17 07:42 | disposition home or self-care (01) ==
LOC: HO.LAB 07:41
PROVIDERS: PCP Internal Medicine; Visit Provider Internal Medicine
DX: E11.9 Type 2 diabetes mellitus without complications (principal); Z79.4 Long term (current) use of insulin; E78.5 Hyperlipidemia, unspecified
CPT/HCPCS: 36415; 80053; 80061; 83036; 85025

== ENCOUNTER 2024-11-29 20:35 | Emergency (ER) | payer OTHER, SELFPAY ==
--- NOTE | 2024-11-29 | ECG_ITS ---
Test Reason : ABD PAIN Blood Pressure : */* mmHG Vent. Rate : 103 BPM Atrial Rate : 103 BPM P-R Int : 154 ms QRS Dur : 76 ms QT Int : 352 ms P-R-T Axes : 54 35 -10 degrees QTcB Int : 461 ms Sinus tachycardia Nonspecific T wave abnormality Abnormal ECG When compared with ECG of 02-Aug-2018 22:13, Nonspecific T wave abnormality now evident in Anterolateral leads Referred By: Generic ED Physician Electronically Signed By: Donovan Hebert
[2024-11-29 20:48] VITALS: BP 187/105; PULSE 102; RESP 20; TEMP 37; O2SAT 95; BMI 27.4
[2024-11-29 21:54] LABS: MANUAL DIFF FLAG NO
[2024-11-29 21:58] LABS: Hematocrit 38.7 % (37.0-47.0); Hemoglobin 13.2 g/dl (12.0-16.0); Imm Gran Abs Auto 0.03 X10*3/uL (0.00-0.03); Imm Gran Pct Auto 0.3 % (0.0-0.4); Lymphocytes Absolute Auto 2.8 X10*3/uL (1.2-4.9); Mean Corpuscular HGB Conc 34.1 g/dl (31.0-35.0); Mean Corpuscular Hemoglobin 27.9 pg (27.0-33.0); Mean Corpuscular Volume 81.8 fL (80.0-98.0); NRBC Abs Auto 0.000 X10*3/uL (0.0-0.012); NRBC Pct Auto 0.0 /100WBC (0.0-0.2); Platelet Count 495 X10*3/uL (160-400); Red Blood Count 4.73 X10*6/uL (4.20-5.50); White Blood Count 10.9 X10*3/uL (4.8-10.8)
[2024-11-29 22:13] LABS: Appearance Urine Clear; Glucose Urine UA >=1000 mg/dL (Negative); PH 6.5 (5.0-9.0); Specific Gravity - Urine >= 1.030 (1.005-1.025); UMIC TRIGGER UACC YES
[2024-11-29 22:15] LABS: COVID-19 Test Negative (Negative); IDNOW Serial# 152EDE1D; IDNOW Serial# 6674DD1D; Influenza B2 Negative (Negative)
[2024-11-29 22:19] LABS: Troponin-I High Sensitivity < 2.7 ng/L (<3.5-17.0)
[2024-11-29 22:22] LABS: Alanine Aminotransferase 22 U/L (0-31); Albumin Level 4.4 g/dL (3.5-5.0); Alkaline Phosphatase 96 U/L (39-117); Anion Gap 14 (12-20); Aspartate Amino Transferase 21 U/L (5-31); Blood Urea Nitrogen 14 mg/dL (9-16); Calcium 9.1 mg/dL (8.4-10.2); Carbon Dioxide 21 mmol/L (22-29); Chloride 105 mmol/L (96-108); Creatinine Clr Calc Pharmacy 108.9; Estimated Glomerular Filt Rate > 60; Lipase 18 U/L (8-78); Potassium 3.9 mmol/L (3.3-5.1); Sodium 136 mmol/L (135-145); Total Protein 7.5 g/dL (6.5-8.0)
[2024-11-30 00:07] VITALS: BP 149/94; PULSE 88; RESP 16; TEMP 36.9; O2SAT 100
[2024-11-30 00:20] LABS: Glucose, Whole Blood 356 mg/dL (60-115)
--- NOTE | 2024-11-30 01:07 | ED.GENADULT ---
HPI - General Adult General Chief complaint: General Medical Stated complaint: nausea, lower extremity pain Time Seen by Provider: 11/30/24 00:11 Source: patient, RN notes reviewed and old records reviewed Mode of arrival: ambulatory Limitations: no limitations History of Present Illness ED Provider: Lexis GONZALES narrative: 33-year-old female with a past medical history significant for diabetes presents for evaluation of multiple complaints. She complains of abdominal pain, pain after urination, weakness, bilateral leg pain. She also endorses general fatigue, weakness, nausea She reports her symptoms started 3 days ago. Denies any fevers, chills, cough, shortness of breath pain She reports that she is not spend significant time outdoors Denies bleeding or discharge No chest pain or shortness of breath Related Data Home Medications ?Medication ?Instructions ?Recorded ?Confirmed atomoxetine 40 mg capsule 40 mg PO QAM 08/02/22 08/02/22 gabapentin 100 mg capsule 100 mg PO BID PRN Pain 08/02/22 08/02/22 metformin 500 mg tablet 500 mg PO BID 08/02/22 08/02/22 oxcarbazepine 300 mg tablet 300 mg PO QAM 08/02/22 08/02/22 oxcarbazepine 300 mg tablet 600 mg PO BEDTIME 08/02/22 08/02/22 sertraline 100 mg tablet 100 mg PO DAILY 08/02/22 08/02/22 Previous Rx's ?Medication ?Instructions ?Recorded sulfamethoxazole 800 1 tab PO Q12H #20 tabs 09/03/22 mg-trimethoprim 160 mg tablet (Bactrim DS) Allergies Allergy/AdvReac Type Severity Reaction Status Date / Time No Known Allergies Allergy Verified 11/29/24 20:50 Review of Systems Constitutional: Constitutional: Denies body ache(s), Denies chills, Denies fever(s), Denies headache(s), Reports lethargy, Reports malaise and Reports weakness Eyes: Eyes: Denies blurry vision ENT: Denies vertigo, Denies dizziness and Denies headache(s) Cardiovascular: Cardiovascular: Denies chest pain and Denies dyspnea on exertion Respiratory: Respiratory: Denies cough and Denies dyspnea on exertion Gastrointestinal: Gastrointestinal: Reports abdominal pain, Reports nausea and Denies vomiting Genitourinary: Genitourinary: Reports dysuria and Reports flank pain Musculoskeletal: Musculoskeletal: Denies back pain Neurologic: Denies vertigo, Denies dizziness, Denies headache(s) and Reports weakness Psychiatric: Psychiatric: Denies anxiety PMFSH Social History Social History Substance Use Type: Other Advance Directives: No Do you have a plan to hurt others: No Plan Physical Exam ED Vital Signs: Vital Signs - 24 hr 11/29/24 20:48 11/30/24 00:07 Temperature 98.6 F 98.4 F Pulse Rate 102 H 88 Respiratory Rate 20 16 Blood Pressure 187/105 H 149/94 H Pulse Oximetry 95 100 Oxygen Delivery Method Room Air Room Air BMI result Body Mass Index 27.4 Const General: healthy appearing, comfortable, no acute distress, alert and awake Nutritional Appearance: well nourished Orientation/consciousness: patient oriented x3 HENMT Head: Yes normocephalic and Yes atraumatic Eyes Eyelids: Yes eyelids normal Conjunctivae: conjunctivae normal Sclerae: sclerae normal Corneas: corneas normal Pupils: Equal, round and reactive pupils present EOM: EOMs intact bilaterally Neck Neck: Yes full ROM Resp Effort & Inspection: normal respiratory effort, able to speak in complete sentences, no audible wheezes and not labored Auscultation: clear to auscultation bilaterally Cardio Rate: regular rate Rhythm: regular rhythm GI Inspection: No distended Palpation (GI): Soft to palpation, not firm, nontender, no guarding and not rigid Skin General skin exam: no rashes or lesions noted and elasticity normal Neuro General: patient oriented x3 Cranial nerves: Yes Equal, round and reactive pupils present and Yes Bilaterally intact EOM present Cognition (Neuro): normal cognition Extrem Other: Moving all extremities well without any obvious deformities Medications Administered Discontinued Medications Generic Name Dose Route Start Last Admin Trade Name Freq PRN Reason Stop Dose Admin Sodium Chloride 1,000 mls @ 999 mls/hr 11/30/24 00:45 11/30/24 00:51 Ns IV 11/30/24 01:45 999 mls/hr .Q1H1M ROLO Administration Insulin Human Regular 5 unit 11/30/24 00:40 11/30/24 00:54 Insulin Regular, Human 100 Unit/Ml 10 Ml Vial IVPUSH 11/30/24 00:41 5 unit ONCE ONE Administration Ketorolac Tromethamine 30 mg 11/30/24 00:40 11/30/24 00:56 Ketorolac Tromethamine 30 Mg/Ml Vial IM 11/30/24 00:41 30 mg ONCE ONE Administration Ondansetron HCl 4 mg 11/30/24 00:40 11/30/24 00:56 Ondansetron Hcl 4 Mg/2 Ml Vial IVPUSH 11/30/24 00:41 4 mg ONCE ONE Administration Medical Decision Making Medical Decision Making [facility] Narrative: 53-year-old female with past medical history significant for diabetes presents for evaluation of multiple complaints including abdominal pain, body aches, leg pain, weakness, nausea. She is afebrile, her vital signs are stable. Her labs are significant for a mild leukocytosis to 10.9 of uncertain etiology. There was no significant left shift, no significant anemia. Chemistries are significant for an initial glucose of 396. The patient's CO2 is low at 21 which could be due to tachypnea and anxiety as her anion gap is only 14, this is less likely DKA. Troponin is negative. The patient is not , renal function is within normal limits. No significant electrolyte abnormalities. Urinalysis shows no evidence of infection, hematuria or proteinuria. We will treat the patient's hyperglycemia with IV fluids, insulin, we will treat her symptoms with Toradol and Zofran. No vaginal bleeding or discharge to suggest PID, she has no right lower quadrant tenderness and negative suggest appendicitis. She does not feel constipated and reports having had a bowel movement this morning. I do not feel that she has any indication for emergent imaging of the abdomen and pelvis at this time. Differential Diagnosis Differential Diagnoses: The differential diagnosis associated with the presentation includes As above Lab Data [facility] Lab Attestation statement: I reviewed the patient's lab results. As above 11/29/24 21:48 11/29/24 21:48 Labs: Lab Results 11/29/24 11/29/24 11/30/24 Range/Units 21:48 22:03 00:16 WBC 10.9 H (4.8-10.8) X10*3/uL RBC 4.73 (4.20-5.50) X10*6/uL Hgb 13.2 (12.0-16.0) g/dl Hct 38.7 (37.0-47.0) % MCV 81.8 (80.0-98.0) fL MCH 27.9 (27.0-33.0) pg MCHC 34.1 (31.0-35.0) g/dl RDW 12.9 (11.0-16.0) % Plt Count 495 H (160-400) X10*3/uL MPV 9.0 L (9.4-12.3) fL Immature Gran % (Auto) 0.3 (0.0-0.4) % Neut % (Auto) 65.1 (45-73) % Lymph % (Auto) 25.7 (20-40) % [place] % (Auto) 5.6 (2-11) % Eos % (Auto) 2.6 (0-4) % Baso % (Auto) 0.7 (0-2) % Lymph # (Auto) 2.8 (1.2-4.9) X10*3/uL [place] # (Auto) 0.6 (0.1-1.2) X10*3/uL Eos # (Auto) 0.3 (0.0-0.4) X10*3/uL Baso # (Auto) 0.1 (0.0-0.2) X10*3/uL Abs Immat Gran (auto) 0.03 (0.00-0.03) X10*3/uL Absolute Neuts (auto) 7.1 (2.0-8.3) x10*3/uL Absolute Nucleated RBC 0.000 (0.0-0.012) X10*3/uL Nucleated RBC % (auto) 0.0 (0.0-0.2) /100WBC Sodium 136 (135-145) mmol/L Potassium 3.9 (3.3-5.1) mmol/L Chloride 105 (96-108) mmol/L Carbon Dioxide 21 L (22-29) mmol/L Anion Gap 14 (12-20) BUN 14 (9-16) mg/dL Creatinine 0.67 (0.5-1.4) mg/dL Estim Creat Clear Calc 108.9 Estimated GFR > 60 POC Glucose 356 H* (60-115) mg/dL Random Glucose 396 H* (60-115) mg/dL Calcium 9.1 (8.4-10.2) mg/dL Total Bilirubin 0.4 (0.0-1.0) mg/dL AST 21 (5-31) U/L ALT 22 (0-31) U/L Alkaline Phosphatase 96 (39-117) U/L Troponin I High Sens < 2.7 (<3.5-17.0) ng/L Total Protein 7.5 (6.5-8.0) g/dL Albumin 4.4 (3.5-5.0) g/dL Lipase 18 (8-78) U/L Beta HCG, Quant < 2 mIU/mL Urine Color Yellow Urine Appearance Clear Urine pH 6.5 (5.0-9.0) Ur Specific [place] >= 1.030 H (1.005-1.025) Urine Protein Negative (Neg-Trace) mg/dL Urine Glucose (UA) >=1000 H (Negative) mg/dL Urine Ketones 15 (Negative) mg/dL Urine Blood Negative (Negative) Urine Nitrite Negative (Negative) Ur Leukocyte Esterase Negative (Negative) Urine RBC 0-2 (0-2) /HPF Urine WBC 0-5 (0-5) /HPF Ur Squamous Epith Cells 0-2 (0-2) /HPF Urine Bacteria None Seen (None Seen) Hyaline Casts 0-2 (0-2) /LPF COVID-19 ([place]IL[place]) Negative (Negative) COVID-19 Clin Com See Note Influenza Type A ([place]) Negative (Negative) Influenza Type B ([place]) Negative (Negative) Influenza A & B Note See Note 11/30/24 Range/Units 01:41 WBC (4.8-10.8) X10*3/uL RBC (4.20-5.50) X10*6/uL Hgb (12.0-16.0) g/dl Hct (37.0-47.0) % MCV (80.0-98.0) fL MCH (27.0-33.0) pg MCHC (31.0-35.0) g/dl RDW (11.0-16.0) % Plt Count (160-400) X10*3/uL MPV (9.4-12.3) fL Immature Gran % (Auto) (0.0-0.4) % Neut % (Auto) (45-73) % Lymph % (Auto) (20-40) % [place] % (Auto) (2-11) % Eos % (Auto) (0-4) % Baso % (Auto) (0-2) % Lymph # (Auto) (1.2-4.9) X10*3/uL [place] # (Auto) (0.1-1.2) X10*3/uL Eos # (Auto) (0.0-0.4) X10*3/uL Baso # (Auto) (0.0-0.2) X10*3/uL Abs Immat Gran (auto) (0.00-0.03) X10*3/uL Absolute Neuts (auto) (2.0-8.3) x10*3/uL Absolute Nucleated RBC (0.0-0.012) X10*3/uL Nucleated RBC % (auto) (0.0-0.2) /100WBC Sodium (135-145) mmol/L Potassium (3.3-5.1) mmol/L Chloride (96-108) mmol/L Carbon Dioxide (22-29) mmol/L Anion Gap (12-20) BUN (9-16) mg/dL Creatinine (0.5-1.4) mg/dL Estim Creat Clear Calc Estimated GFR POC Glucose 246 H (60-115) mg/dL Random Glucose (60-115) mg/dL Calcium (8.4-10.2) mg/dL Total Bilirubin (0.0-1.0) mg/dL AST (5-31) U/L ALT (0-31) U/L Alkaline Phosphatase (39-117) U/L Troponin I High Sens (<3.5-17.0) ng/L Total Protein (6.5-8.0) g/dL Albumin (3.5-5.0) g/dL Lipase (8-78) U/L Beta HCG, Quant mIU/mL Urine Color Urine Appearance Urine pH (5.0-9.0) Ur Specific [place] (1.005-1.025) Urine Protein (Neg-Trace) mg/dL Urine Glucose (UA) (Negative) mg/dL Urine Ketones (Negative) mg/dL Urine Blood (Negative) Urine Nitrite (Negative) Ur Leukocyte Esterase (Negative) Urine RBC (0-2) /HPF Urine WBC (0-5) /HPF Ur Squamous Epith Cells (0-2) /HPF Urine Bacteria (None Seen) Hyaline Casts (0-2) /LPF COVID-19 (ODILIA) (Negative) COVID-19 Clin Com Influenza Type A ([place]) (Negative) Influenza Type B ([place]) (Negative) Influenza A & B Note Discharge Plan Discharge Clinical Impression: Abdominal pain, Hyperglycemia Patient Disposition: Home, Self-Care Instructions: Diabetic Hyperglycemia (ED), Abdominal Pain (ED) Additional Instructions: Your workup in the ER today was reassuring. Your glucose was elevated. I recommend that you follow up with your primary doctor, you may need to be initiated on a sliding scale in addition to your basal or long-acting insulin Return for new or worsening symptoms Prescriptions: No Action metformin 500 mg tablet 500 mg PO BID oxcarbazepine 300 mg tablet 300 mg PO QAM gabapentin 100 mg capsule 100 mg PO BID PRN (Reason: Pain) atomoxetine 40 mg capsule 40 mg PO QAM oxcarbazepine 300 mg tablet 600 mg PO BEDTIME sertraline 100 mg tablet 100 mg PO DAILY sulfamethoxazole-trimethoprim [Bactrim DS] 800-160 mg tablet 1 tab PO Q12H Qty: 20 0RF Stand Alone Forms: Work/School Release Print Language: Kitt[place]
[2024-11-30 01:44] LABS: Glucose, Whole Blood 246 mg/dL (60-115)
[2024-11-30 02:03] VITALS: BP 147/84; PULSE 89; RESP 16; TEMP 36.8; O2SAT 100
== END 2024-11-30 02:03 | disposition home or self-care (01) ==
PROVIDERS: Emergency Provider Emergency Medicine Emergency Medical Services
DX: E11.65 Type 2 diabetes mellitus with hyperglycemia (principal); R10.9 Unspecified abdominal pain
CPT/HCPCS: 80053; 81001; 82947; 83690; 84484; 84702; 85025; 87502; 87635; 93005; 96361; 96372; 96374; 96375; 99284; 99285; J1885; J2405

== ENCOUNTER → 2024-11-29 21:47 | Outpatient (BNV) | payer OTHER, SELFPAY | PROVIDERS: Emergency Provider Emergency Medicine Emergency Medical Services; Visit Provider Internal Medicine Cardiovascular Disease | DX: R00.0 Tachycardia, unspecified (principal) | CPT/HCPCS: 93010 ==

== ENCOUNTER 2024-12-29 09:27 | Outpatient (AMB) | payer OTHER, SELFPAY ==
--- NOTE | 2024-12-29 09:30 | A.OFFPC_ITS ---
Vital Signs 12/29/24 09:38 Height 5 ft 4.06 in Weight 153 lb BMI 26.2 BP 134/78 Blood Pressure Location Lt brachial Position Sitting Respiration 16 Pulse 98 Pulse Source Pulse Oximeter Temp 97.6 F Temp Source Temporal Artery Scan Pulse Oximetry (%) 97 Oxygen Delivery Method Room Air Intake Visit Reasons: ROXIE-Mugg pt Well Tender Required: No Accompanied by: Self / Same As Patient Allergies No Known Allergies Allergy (Verified 12/29/24 09:30) Medication List - Last Reconciled 12/29/24 by Parker Fleming MD gabapentin 300 mg PO ONCE oxcarbazepine 600 mg PO BEDTIME oxcarbazepine 300 mg PO BID Tobacco use date assessed: 12/29/24 Dental Screening Dental Screen Date: 12/29/24 Did you have a dental visit in the last 12 months?: Yes Did you have a dental problem in the last 6 months where you did not have access to dental care?: No Was dental information given to patient?: Patient has dentist HPI HPI Comments History of Present Illness Details The patient is a 34-year-old female presenting with management of her uncontrolled Diabetes Mellitus Type 2. She reported a history of elevated blood glucose levels, with a recent A1c of 11.9 and glucose level of 500 mg/dL, leading to a hospitalization in the previous month. The patient has been self-adjusting her insulin regimen, increasing her night-time dose from 30 to 50 units of long-acting insulin due to inadequate glycemic control. Previously, she was under the care of Dr. Torres, who retired approximately a year ago. Since then, she has not had any UTIs or hospitalizations for kidney infections, which were problematic last year. She has a history of attempting Metformin but ceased usage due to severe gastrointestinal distress. During a previous , she was managed with a sliding scale insulin regimen. The patient also reports significant leg pain and neuropathy, which resulted in past ER visits. Medical History: - Diabetes Mellitus Type 2 - Bipolar Disorder - Hyperlipidemia Surgical History: - Two sections Medications: - Long-acting insulin, 50 units at night for Diabetes Mellitus Type 2 - Oxcarbazepine 300 mg twice a day and 6 00 mg at night for Bipolar Disorder and pain management - Gabapentin 300 mg daily for neuropathi c pain Family History: - Family history of Diabetes Mellitus Diagnostic Results: - Labs: A1c of 11.9 - Glucose level of 500 mg/dL Social History: - Employment: Works at [employer] in [facility] - Substance Use: Quit smoking four years ago, does not consume alcohol or drugs - Housing: Lives nearby, reported having safe housing COUNT [facility]CLUD[facility] Medical History (Updated 12/29/24 @ 10:07 by Parker Fleming MD) Hyperlipidemia Diabetic neuropathy Bipolar 1 disorder Insulin dependent type 2 diabetes mellitus Social History Housing: House Patient Tobacco Use Status: Former Tobacco user Years Smoked: 4 years e-Cigarette/Vaping Use: Currently Using Substance Use Type: Other service: No Current occupational status: employed Current occupation: [employer] Questionnaire PHQ-9 Over the last 2 weeks, how often have you been bothered by any of the following problems? 1. Little interest or pleasure in doing things: not at all 2. Feeling down, depressed, or hopeless: not at all 3. Trouble falling or staying asleep, or sleeping too much: not at all 4. Feeling tired or having little energy: not at all 5. Poor appetite or overeating: not at all 6. Feeling bad about yourself - or that you are a failure or have let yourself or your family down: not at all 7. Trouble concentrating on things, such as reading the newspaper or watching television: not at all 8. Moving or speaking so slowly that other people could have noticed. Or the opposite - being so fidgety or restless that you have been moving around a lot more than usual: not at all 9. Thoughts that you would be better off or of hurting yourself in some way: not at all Total score: 0 Depression Screening Interpretation: Negative Depression Screening Done: Yes 35552 - PHQ-9 Billing: Yes Source: Developed by Drs. Jayme Faulkner, Barbara Melendez, Mariano Kline and colleagues, with an educational hanny from [employer]. Thrive Questionnaire I am a: Patient What is your living situation today?: I have a steady place to live Within the past 12 months, did the food you bought not last and you didn't have the money to get more?: Never true Within the past 12 months, did you worry whether your food would run out before you got money to buy more?: Never true Do you have trouble paying for medicines?: No Do you have trouble getting transportation to medical appointments?: No Do you have trouble paying your heating and electricity bill?: No Do you have trouble taking care of your child, family member or friend?: No Do you have trouble with day-to-day activities such as bathing, preparing meals, shopping, managing finances, etc.?: No Are you currently unemployed and looking for a job?: No Are you interested in more education?: No THRIVE Score: 0 AUDIT C Alcohol Use Questionnaire (AUDIT-C) 1. How often do you have a drink containing alcohol?: Never 3. How often do you have six or more drinks on one occasion?: Never Total Score: 0 Score Reviewed/Action Taken: Yes DANA-7 AMB Questionnaire DANA-7 Date DANA - 7 assessed: 12/29/24 Feeling nervous, anxious, or on edge: 0 = Not at all Not being able to stop or control worryin = Not at all Worrying too much about different things: 0 = Not at all Trouble relaxin = Not at all Being so restless that it is hard to sit still: 0 = Not at all Becoming easily annoyed or irritable: 0 = Not at all Feeling afraid as if something awful might happen: 0 = Not at all Total DANA-7 score (0-4 normal; 5-9 mild; 10-14 moderate; 15-21 severe): 0 Source: Developed by Drs. Jayme Faulkner, Barbaar Melendez, Mariano Kline and colleagues, with an educational hanny from [employer]. DANA-7 Assessment Billing DANA-7 Assessment Tool: DANA-7 Assessment 80034 Review of Systems Narrative - General: Reports no allergies - Genitourinary: Denies recent urinary tract infections - Musculoskeletal: Reports leg pain and neuropathy - Gastrointestinal: Reports past severe side effects with Metformin resulting in cessation - Endocrine: Reports poor glycemic control with elevated glucose and A1c levels All systems reviewed & are unremarkable except as reviewed in HPI and above Physical exam (Primary Care) Vital Signs: Last Vital Signs Temp 97.6 F 12/29/24 09:38 Pulse 98 12/29/24 09:38 Resp 16 12/29/24 09:38 BP 134/78 12/29/24 09:38 Pulse Ox 97 12/29/24 09:38 Oxygen Delivery Method Room Air 12/29/24 09:38 BMI result Body Mass Index 26.2 Tobacco/Smoking Status: Tobacco use Status Tobacco use date assessed 12/29/24 12/29/24 09:32 Patient Tobacco Use Status Former Tobacco user 12/29/24 09:40 e-Cigarette/Vaping Use Currently Using 12/29/24 09:40 Depression Screening Interpretation: Negative Narrative General: Alert and oriented, Well nourished, No acute distress. Eye: Pupils are equal, round and reactive to light, Intact accommodation, Extraocular movements are intact, Normal conjunctiva, Vision unchanged. HENT: Normocephalic, Atraumatic, Tympanic membranes are clear, Normal hearing, Oral mucosa is moist, No pharyngeal erythema, Ear canals patent. Respiratory: Lungs CTA bilaterally, No wheeze, Respirations are non-labored. Cardiovascular: Regular rate, Regular rhythm, S1 auscultated, S2 auscultated, No murmur, Good pulses equal in all extremities, Normal peripheral perfusion, No edema. Gastrointestinal: Soft, Non-tender, Non-distended, Normal bowel sounds, No organomegaly. Musculoskeletal: Normal range of motion, Normal strength, No tenderness, No swelling, No deformity, Normal gait. Integumentary: Warm, Dry, Barnum, Intact. Noted bumps on hand, biopsy previously done with inconclusive results. Neurologic: Alert, Oriented, Normal sensory, Normal motor function, No focal defects, Cranial Nerves II-XII are grossly intact, Normal deep tendon reflexes. Psychiatric: Cooperative, Appropriate mood & affect, Normal judgment. Reports history of bipolar disorder, currently managed with medication. Coding Level of Care Code New Pt Level 4 (28065) Diagnoses Insulin dependent type 2 diabetes mellitus E11.9; Z79.4 Bipolar 1 disorder F31.9 Other diabetic neurological complication associated with type 2 diabetes mellitus E11.49 Diabetes mellitus type: type 2 Diabetes mellitus complication detail: with other neurological complication Other hyperlipidemia E78.49 Hyperlipidemia type: other hyperlipidemia Additional Codes PHQ-9 - 21447 - PHQ-9 Billing: Yes ([id number]) DANA-7 Assessment Billing - DANA-7 Assessment Tool: DANA-7 Assessment 88802 ([id number]) Assessment & Plan Assessment & Plan (1) Insulin dependent type 2 diabetes mellitus: Comment: - Previously on 30u Lantus [facility] and previously followed by [facility] - Start 8U Lispro TIDAC with moderate sliding scale & 20U Lantus QHS - Referral to an typesetter perforator operator for specialized diabetes management. - Plan for comprehensive blood work, including lipid profile to monitor hyperlipidemia. Code(s): E11.9 - Type 2 diabetes mellitus without complications; Z79.4 - adjunct faculty for medical terminology (current) use of insulin Category: Medical (2) Bipolar 1 disorder: Comment: - Continue current medication regimen with Oxcarbazepine. - Maintain follow-up at [facility] with psychologist Vale Crum and psychiatrist through [facility] for ongoing psychiatric management. Code(s): F31.9 - Bipolar disorder, unspecified Category: Medical (3) Diabetic neuropathy: Comment: - Continue Gabapentin for pain management. - Objective is to stabilize blood glucose levels to reduce neuropathic symptoms. - Advise close monitoring and follow-up if symptoms persist. Code(s): E11.40 - Type 2 diabetes mellitus with diabetic neuropathy, unspecified Category: Medical Qualifiers: Diabetes mellitus type: type 2 Diabetes mellitus complication detail: with other neurological complication Qualified Code(s): E11.49 - Type 2 diabetes mellitus with other diabetic neurological complication (4) Hyperlipidemia: Comment: - Monitor lipid levels and reinforce dietary modifications for cardiovascular risk reduction. - Repeat Lipid Panel in June Code(s): E78.5 - Hyperlipidemia, unspecified Category: Medical Qualifiers: Hyperlipidemia type: other hyperlipidemia Qualified Code(s): E78.49 - Other hyperlipidemia Plan: Health Maintenance: - Discussion regarding dietary adjustments for lipid management. - Recommendation for an ophthalmology appointment for diabetes-related eye health surveillance. - Current vaccination status for Hepatitis B discussed. Patient was informed and verbally consented to the use of an ambient scribe for clinic note documentation during this visit. Plan During the consultation, I discussed the implications of uncontrolled diabetes and emphasized the importance of stabilizing blood sugar levels to minimize complications like neuropathy and hyperlipidemia. I outlined a new insulin regimen and introduced a sliding scale approach for monitoring. We agreed on a referral to an typesetter perforator operator for specialized care. Health maintenance topics, such as lipid management and eye examinations, were addressed. The patient was advised to continue psychiatric care and take medications as prescribed. We also reviewed the possibility of using a Dexcom device, contingent on insurance approval. Orders: Orders Complete Blood Count Auto Diff Today Z76.89 - Persons encountering health services in other specified circumstances Comprehensive Met. Panel Today Z76.89 - Persons encountering health services in other specified circumstances Hepatitis A,B,C Profile Today Z76.89 - Persons encountering health services in other specified circumstances HIV Ab/Ag Today Z76.89 - Persons encountering health services in other specified circumstances Syphilis Screen Today Z76.89 - Persons encountering health services in other specified circumstances TSH reflex Free T4 Today Z76.89 - Persons encountering health services in other specified circumstances Vitamin D 25-OH Total Today Z76.89 - Persons encountering health services in other specified circumstances Microalbumin, Random (w Creat) Today E11.9 - Type 2 diabetes mellitus without complications, Z79.4 - adjunct faculty for medical terminology (current) use of insulin Hemoglobin A1c Today Z76.89 - Persons encountering health services in other specified circumstances Referrals Endocrinology Referral E11.9 - Type 2 diabetes mellitus without complications, Z79.4 - adjunct faculty for medical terminology (current) use of insulin Medications: New insulin lispro (Humalog KwikPen (U-100) Insulin) Also add sliding scale with meals 71-119 No additional insulin. 120-150 2 units. 151-200 4 units. 201-250 6 units. 251-300 8 units. 301-350 10 units. Greater than 351 12 units 8 units (0.08 mL) subcut TID 15 mL 4RF 30 days blood sugar diagnostic (Accu-Chek Kasia Plus test strips) As directed 100 ea 4RF lancets (Accu-Chek Fastclix Lancet Drum) As directed 200 ea 2RF blood-glucose sensor (Dexcom G7 Sensor device) As directed 1 ea 8RF E11.9 - Type 2 diabetes mellitus without complications, Z79.4 - detention (current) use of insulin insulin glargine (Basaglar KwikPen U-100 Insulin) 20 units (0.2 mL) subcut QPM 6 mL 6RF 30 days blood-glucose meter (Accu-Chek Guide Glucose Meter) As directed 1 ea 0RF Discontinued sulfamethoxazole-trimethoprim 800-160 mg (Bactrim DS) Discontinued Reason: Patient Completed Course 1 tab PO Q12H 20 tabs 0RF Patient Instructions: - Take your insulin as directed, with 20 units at night and 8 units before meals. - Check your blood sugar levels according to the sliding scale and record your readings. - Follow up with an typesetter perforator operator as scheduled. - Continue all medications as prescribed for your Bipolar Disorder and neuropathy. - Make dietary changes to manage cholesterol levels. - Schedule an eye exam to monitor your vision health. - Contact us or visit the emergency room if sugars are consistently uncontrolled or if you experience worsening symptoms.
[2024-12-29 09:38] VITALS: BP 134/78; PULSE 98; RESP 16; TEMP 36.4; O2SAT 97; BMI 26.2
--- OUTSIDE RECORDS SUMMARY | 2024-12-29 10:34 | XMS_ITS | Clinical Summary ---
Author Organization [employer] Address [address] [place] [address] Care Team Providers Care Camp Director Name Role Phone Unavailable Primary Care Provider Unavailabl e Allergies No known active allergies Medications gabapentin (Neurontin) 100 MG capsule TAKE 1 CAPSULE BY MOUTH TWICE A DAY, NEEDED AND TAKE 2 CAPSULES AT BEDTIME, NEEDED 02/04/20 Active OXcarbazepine (Trileptal) 300 MG tablet TAKE 1 TABLET BY MOUTH EVERY DAY IN THE MORNING AND TAKE 2 TABLETS AT BEDTIME 02/04/20 Active sertraline (Zoloft) 100 MG tablet Take 100 mg by mouth in the morning. 01/25/20 22 Active etonogestrel-elut ing (Nexplanon) 68 mg contraceptive implant Inject 68 mg under the skin. 07/19/19 20 Active Nirmatrelvir&Cortez navir 300/100 (Paxlovid, 300/100,) 20 x 150 MG & 10 x 100MG tablet therapy packIndications:C OVID-19 Take 3 tablets by mouth 2 times daily. Per package instructions 30 each 03/06/20 22 Active Acetaminophen 500 MG capsuleIndication s:COVID-19 Take 1-2 tablets as needed by oral route every 6 hours 30 capsule 1 03/06/20 22 Active albuterol 108 (90 Base) MCG/ACT inhalerIndication s:COVID-19 Inhale 2 puffs every 6 (six) hours if needed for wheezing. 18 g 11 03/06/20 22 Active Active Problems Problem Noted Date Diagnosed Date Bipolar 1 disorder ([facility]) 03/06/2022 Diabetes mellitus, type II 03/06/2022 Graves disease 03/06/2022 Hidradenitis suppurativa 03/06/2022 History of substance abuse ([facility]) 03/06/2022 Overview (03/06/2022): cocaine use disorder; sober since 07/2018 PTSD (post-traumatic stress disorder) 03/06/2022 Asthma 03/06/2022 Chronic hypertension 03/06/2022 Immunizations Immunization Administration Dates Next Due Moderna Covid-19 Vaccine 12+ 02/14/2021 Moderna Covid-19 Vaccine 6+ Bivalent 02/26/2022 Pfizer Covid-19 Vaccine 12+ 05/01/2020, Social History Tobacco Use Types Packs/Day Years Used Date Smoking Tobacco: Never Smokeless Tobacco: Current Tobacco Cessation:Ready to Q uit: Not Asked; Counseling Given: Not Answered Comments Unknown Sex and Gender Information Value Date Recorded Sex Assigned at Female 02/26/2022 10:05 AM EST Legal Sex Female 10:03 AM EST Gender Identity Female 02/26/2022 10:05 AM EST Sexual Orientation Choose not to disclose 2021 10:05 AM EST Last Filed Vital Signs Vital Sign Reading Time Taken Comments Blood Pressure 139/87 03/06/2022 10:35 AM EST Pulse 114 03/06/2022 10:35 AM EST Temperature 38.1 C (100.6 F) 03/06/2022 10:35 AM EST Respiratory Rate 20 03/06/2022 10:35 AM EST Oxygen Saturation 96% 03/06/2022 10:35 AM EST Inhaled Oxygen Concentration - - Weight 70.8 kg (156 lb) 03/06/2022 10:35 AM EST Height 157.5 cm (5' 2 ) 03/06/2022 10:35 AM EST Body Mass Index 28.53 03/06/2022 10:35 AM EST Plan of Treatment Health Maintenance Due Date Last Done Comments Depression Screening 1991 Diabetes: Hemoglobin A1C 1991 HIV Screening 1991 Lipid Panel 1991 SDOH Screening 1991 Disability Screening 1991 Diabetes: Foot Exam 12/10/2001 Eye Exam 12/10/2001 Alcohol/Substance Use Screening 2003 Family Planning (PISQ) 12/10/2006 HPV Vaccines (1 - 3-dose series) 12/10/2006 Hepatitis C Screening 12/10/2009 Diabetes: Urine Protein Screening 12/10/2010 Pneumococcal Vaccine: Pediatrics (0 to 5 Years) and At-Risk Patients (6 to 49) Years (1 of 2 - PCV) 12/10/2010 Pap Smear 12/10/2012 Hepatitis B Vaccines (2 of 3 - 19+ 3-dose series) 02/25/2017 01/28/2017 Cervical Cancer Screening 12/10/2021 HPV/Cotest 12/10/2021 Tobacco Screening 03/06/2023 03/06/2022 COVID-19 Vaccine ( - season) 2024 02/26/2022, 02/14/2021, 05/01/2020, Additional history exists Influenza Vaccine (#1) 2024 04/08/2019, 2016 DTaP/Tdap/Td Vaccines (3 - Td or Tdap) 04/24/2029 04/24/2019, 07/30/2015 Zoster Vaccines (1 of 2) 12/10/2041 RSV Patients and Patients Aged 60 years or older (1 - 1-dose 75+ series) 12/10/2066 HIB Vaccines Aged Out No longer eligi ble based on patient's age to complete this topic Hepatitis A Vaccines Aged Out No long er eligible based on patient's age to complete this topic IPV Vaccines Aged Out No longer eligi ble based on patient's age to complete this topic Meningococcal B Vaccine Aged Out No l onger eligible based on patient's age to complete this topic Meningococcal Vaccine Aged Out No danni shira eligible based on patient's age to complete this topic RSV under 20 months Aged Out No longe r eligible based on patient's age to complete this topic Rotavirus Vaccines Aged Out No longer eligible based on patient's age to complete this topic Insurance [facility]
== END 2024-12-29 10:03 | disposition home or self-care (01) ==
PROVIDERS: PCP Student in an Organized Health Care Education/Training Program; Visit Provider Student in an Organized Health Care Education/Training Program
DX: E11.49 Type 2 diabetes mellitus with other diabetic neurological complication (principal); Z79.4 Long term (current) use of insulin; F31.9 Bipolar disorder, unspecified; E78.49 Other hyperlipidemia

== ENCOUNTER 2024-12-29 09:27 | Outpatient (REF) | payer OTHER, SELFPAY ==
[2024-12-29 10:35] LABS: MANUAL DIFF FLAG NO
[2024-12-29 10:46] LABS: Hematocrit 40.2 % (37.0-47.0); Hemoglobin 13.5 g/dl (12.0-16.0); Imm Gran Abs Auto 0.04 X10*3/uL (0.00-0.03); Imm Gran Pct Auto 0.4 % (0.0-0.4); Lymphocytes Absolute Auto 2.2 X10*3/uL (1.2-4.9); Mean Corpuscular HGB Conc 33.6 g/dl (31.0-35.0); Mean Corpuscular Hemoglobin 27.6 pg (27.0-33.0); Mean Corpuscular Volume 82.2 fL (80.0-98.0); NRBC Abs Auto 0.000 X10*3/uL (0.0-0.012); NRBC Pct Auto 0.0 /100WBC (0.0-0.2); Platelet Count 451 X10*3/uL (160-400); Red Blood Count 4.89 X10*6/uL (4.20-5.50); White Blood Count 8.9 X10*3/uL (4.8-10.8)
[2024-12-29 11:24] LABS: Alanine Aminotransferase 19 U/L (0-31); Albumin Level 4.4 g/dL (3.5-5.0); Alkaline Phosphatase 87 U/L (39-117); Anion Gap 14 (12-20); Aspartate Amino Transferase 19 U/L (5-31); Blood Urea Nitrogen 12 mg/dL (9-16); Calcium 9.3 mg/dL (8.4-10.2); Carbon Dioxide 20 mmol/L (22-29); Chloride 107 mmol/L (96-108); Estimated Glomerular Filt Rate > 60; Potassium 3.9 mmol/L (3.3-5.1); Sodium 137 mmol/L (135-145); Total Protein 7.5 g/dL (6.5-8.0)
[2024-12-29 11:30] LABS: Microalbum/Creatinine Ratio Ur 22.0 ug/mg cr (<30)
[2024-12-29 11:39] LABS: HBc Num1 0.04 S/CO (0.00-0.79); HBsAGNum1 0.26 S/CO (0.00-0.99); HIV Num 1 0.84 S/CO (0.00-0.99); Hepatitis A Antibody IgM 0.52 Index (0-0.79); Hepatitis B Surface Antigen Negative (Negative); Syphilis Screen Nonreactive (Nonreactive); ~HepC Num1 0.08 S/CO (0.00-0.79); ~Hepatitis A Antibody IgM Nonreactive (Nonreactive); ~Hepatitis B Surface Antibody REACTIVE (Nonreactive); ~Hepatitis C Antibody Nonreactive (Nonreactive)
== END 2024-12-29 09:28 | disposition home or self-care (01) ==
LOC: HO.LAB 09:27
PROVIDERS: PCP Student in an Organized Health Care Education/Training Program; Visit Provider Student in an Organized Health Care Education/Training Program
DX: E11.49 Type 2 diabetes mellitus with other diabetic neurological complication (principal); F31.9 Bipolar disorder, unspecified; E78.49 Other hyperlipidemia; Z79.4 Long term (current) use of insulin; Z76.89 Persons encountering health services in other specified circumstances
CPT/HCPCS: 36415; 80053; 82043; 82306; 82570; 83036; 84443; 85025; 86704; 86706; 86709; 86780; 86803; 87340; 87389; 96127; 99202

== ENCOUNTER 2025-01-19 08:43 | Outpatient (AMB) | payer OTHER, SELFPAY ==
--- NOTE | 2025-01-19 08:51 | A.OFFVIS_ITS ---
Vital Signs 01/19/25 09:00 Height 5 ft 2.3 in Weight 158 lb 11.725 oz BMI 28.8 BP 164/110 H Blood Pressure Location Rt brachial Position Sitting Pulse 94 Pulse Source Pulse Oximeter Pulse Oximetry (%) 96 Oxygen Delivery Method Room Air Intake Visit Reasons: Type 2 diabetes mellitus without complications Intake Note: NEW Patient presents today to establish treatment for Type 2 Diabetes Mellitus: Last Diabetic eye exam was on: DUE, needs a new referral Last Podiatry exam was on: Patient does not see a Covering Machine Tender Most recent HbA1c: 13.1%, 12/29/2024 Random Glucose: 125 mg/dL Electrical High Tension Tester Required: No Accompanied by: Self / Same As Patient Allergies No Known Allergies Allergy (Verified 01/19/25 08:51) HPI Comments Details: The patient is a 34-year-old female presenting for consult for Diabetes Mellitus Type 2. Medical history: Bipolar disorder, hyperlipidemia Diagnosed 2010. previously seen in [facility]-not recent Current medications Basaglar 20 units nightly Humalog 8 units TID plus sliding scale sliding scale with meals 71-119 No additional insulin. 120-150 2 units. 151-200 4 units. 201-250 6 units. 251-300 8 units. 301-350 10 units. Greater than 351 12 units Prior meds: metformin-GI side effects. Trulicity-did well with the medicaiton She reports compliance with medication. She has drastically changed her diet over the past month. CGM 14 day with GMI 7.9% TGT 44% high 55% low <1% A1C 13.1% 12/29/2024 from 11.9 Complications Neuropathy- Gabapentin 300 mg daily. Request podiatry referral She is overdue for eye exam Family History: - Family history of Diabetes Mellitus ROS CONSTITUTIONAL: Denies weight loss, fever and chills. HEENT: Denies changes in vision and hearing. RESPIRATORY: Denies SOB and cough. CV: Denies palpitations and CP GI: Denies abdominal pain, nausea, vomiting and diarrhea. : Denies dysuria and urinary frequency. MSK: Denies new myalgia and joint pain. SKIN: Denies rash and pruritus. NEUROLOGICAL: Denies headache . Mild neuropathy PSYCHIATRIC: Denies recent changes in mood. PHYSICAL EXAM: GENERAL: Alert and oriented x 3. NAD EYES: EOMI. Anicteric. HENT: Moist mucous membranes. No scleral icterus. No cervical lymphadenopathy. LUNGS: Clear to auscultation bilaterally. CARDIOVASCULAR: Regular rate and rhythm. No murmur. No JVD. ABDOMEN: Soft, non-tender +bs EXTREMITIES: No edema. Non-tender. SKIN: No rashes or lesions. Warm. NEUROLOGIC: No focal neurological deficits. CN II-XII grossly intact PSYCHIATRIC: Cooperative. Appropriate mood and affect [facility] Medical History (Updated 01/19/25 @ 09:33 by Kylee Hernandez MD) Hyperlipidemia Diabetic neuropathy Bipolar 1 disorder Insulin dependent type 2 diabetes mellitus Surgical History (Updated 01/17/25 @ 16:33 by YESSI Mancini) No pertinent past surgical history Family History (Updated 01/17/25 @ 16:32 by YESSI Mancini) Father No problems noted. Mother No problems noted. Social History Housing: House Patient Tobacco Use Status: Former Tobacco user Years Smoked: 4 years e-Cigarette/Vaping Use: Currently Using Substance Use Type: Other service: No Current occupational status: employed Current occupation: [employer] Assessment & Plan Assessment & Plan (1) Insulin dependent type 2 diabetes mellitus: Comment: - Previously on 30u Lantus QHS and previously followed by [facility] Endocrinology - Start 8U Lispro TIDAC with moderate sliding scale & 20U Lantus QHS - Referral to an director critical care for specialized diabetes management. - Plan for comprehensive blood work, including lipid profile to monitor hyperlipidemia. Code(s): E11.9 - Type 2 diabetes mellitus without complications; Z79.4 - ferry terminal supervisor (current) use of insulin Category: Medical Plan 34 year old female presenting for diabetes consultation. Her glucose has improved greatly over the past month. She is still running too high however. Will add trulicity 0.75 weekly. She says she has done really well with this medication in the past. She denies frequent hypoglycemia. If she has recurrent hypoglycemia we can adjust her mealtime insulin Treat hypoglycemia by rules of 15s She will return in Mar or sooner as needed Orders: Orders Glutamic acid decarboxylase Ab Today E11.9 - Type 2 diabetes mellitus without complications, Z79.4 - [facility] (current) use of insulin Islet Cell Antibody Scrn/Titer Today E11.9 - Type 2 diabetes mellitus without complications, Z79.4 - [facility] (current) use of insulin Referrals Ophthalmology Referral E11.9 - Type 2 diabetes mellitus without complications, Z79.4 - ferry terminal supervisor (current) use of insulin Podiatry Referral E11.9 - Type 2 diabetes mellitus without complications, M79.673 - Pain in unspecified foot, Z79.4 - ferry terminal supervisor (current) use of insulin Medications: New dulaglutide (Trulicity) 0.75 mg (0.5 mL) subcut QWEEK 6 mL 3RF E11.9 - Type 2 diabetes mellitus without complications, Z79.4 - [facility] (current) use of insulin hydrochlorothiazide 12.5 mg PO DAILY 90 tabs 1RF Changed From blood-glucose sensor (Dexcom G7 Sensor device) As directed 1 ea 8RF E11.9 - Type 2 diabetes mellitus without complications, Z79.4 - ferry terminal supervisor (current) use of insulin To Dexcom G7 Sensor (blood-glucose sensor) every 10 days 9 ea 3RF NS E11.9 - Type 2 diabetes mellitus without complications, Z79.4 - ferry terminal supervisor (current) use of insulin Coding Level of Care Code Est Pt Level 4 (52359) Diagnoses Insulin dependent type 2 diabetes mellitus E11.9; Z79.4
[2025-01-19 09:00] VITALS: BP 164/110; PULSE 94; O2SAT 96; BMI 28.8
--- OUTSIDE RECORDS SUMMARY | 2025-01-19 09:05 | XMS_ITS | Clinical Summary ---
Author Organization [employer] Address [address] [place] [address] Care Team Providers Care Soaping Department Supervisor Name Role Phone Unavailable Primary Care Provider [...] daily. Per package instructions 30 each 03/06/20 Active Acetaminophen 500 MG capsuleIndication s:COVID-19 Take 1-2 tablets as needed by oral route every 6 hours 30 capsule 1 03/06/20 22 Active albuterol 108 (90 Base) MCG/ACT inhalerIndication s:COVID-19 Inhale 2 puffs every 6 (six) hours if needed for wheezing. 18 g 11 03/06/20 22 Active Active Problems Problem Noted Date Diagnosed Date Bipolar 1 disorder ([facility]) 03/06/2022 Diabetes mellitus, type II 03/06/2022 Graves disease 03/06/2022 Hidradenitis suppurativa 03/06/2022 History of substance abuse ([facility]) 03/06/2022 Overview (03/06/2022): cocaine use disorder; sober [...] patient's age to complete this topic Insurance [facility]
[2025-01-19 10:21] LABS: Glucose, Whole Blood 125 mg/dL (60-115)
== END 2025-01-19 09:36 | disposition home or self-care (01) ==
LOC: HO.ENCR 08:43
PROVIDERS: PCP Student in an Organized Health Care Education/Training Program; Visit Provider Internal Medicine
DX: E11.9 Type 2 diabetes mellitus without complications (principal); Z79.4 Long term (current) use of insulin

== ENCOUNTER → 2025-01-19 08:43 | Outpatient (BNVA) | payer OTHER, SELFPAY | PROVIDERS: PCP Student in an Organized Health Care Education/Training Program; Visit Provider Internal Medicine | DX: E11.9 Type 2 diabetes mellitus without complications (principal); Z79.4 Long term (current) use of insulin | CPT/HCPCS: 82947; 99212 ==